=== PATIENT | male | born 1960 | race Caucasian/White ===

== ENCOUNTER 2018-11-27 15:45 | Inpatient (IN) ==
[2018-11-27 16:07] LABS: BASO# 0.08 X1000 (0.0-0.2); BASO% 0.4 % (0.0-0.8); EOS% 2.8 % (0.0-10.0); HEMOGLOBIN 12.6 g/dL (14.0-18.0); IMM GRAN# 0.19 X1000 (0.0-0.04); IMM GRAN% 0.9 % (0.0-0.5); LYMPH# 3.53 X1000 (1.2-3.4); LYMPH% 16.4 % (20.5-51.1); MCHC 37.1 g/dL (33-37); MCV 94.4 FL (81-99); MONO# 3.67 X1000 (0.11-0.59); MPV 11.4 FL (7.4-10.4); NEUT# 13.51 X1000 (1.4-6.5); NEUT% 62.5 % (42.2-75.2); PLT 310 X1000 (130-400); RDW 19.4 % (11.5-14.5); WBC 21.58 X1000 (4.8-10.8)
[2018-11-27 16:38] LABS: AGAP 14; ALB/GLOB RATIO 0.7; ALBUMIN 3.3 g/dL (3.5-5.0); ALKALINE PHOSPHATASE 722 U/L (32-122); BUN 11 mg/dL (8-22); CALCIUM 9.6 mg/dL (8.8-10.2); CHLORIDE 94 mmol/L (98-107); COSMO 257; CREATININE 0.6 mg/dL (0.7-1.2); ESTIMATED GFR > 60; GLUCOSE 105 mg/dL (70-104); GOT 67 U/L (10-34); GPT 63 U/L (10-44); POTASSIUM 3.7 mmol/L (3.5-5.1); SODIUM 128 mmol/L (136-145); TCO2 20 mmol/L (25-35); TOTAL BILIRUBIN 7.14 mg/dL (0.20-1.00); TOTAL PROTEIN 8.3 g/dL (6.3-8.3)
[2018-11-27] MEDS ORDERED: MORPHINE IV ONE ×2 (16:55→19:50)
[2018-11-27] MEDS ORDERED: NS 1,000 ML IV ONE (16:55)
[2018-11-27] MEDS ORDERED: ZOFRAN IV ONE (16:55)
[2018-11-27] MEDS ORDERED: VANCOMYCIN 1 GM/NS 1 GM/250 ML IVPB IV ONE (16:57)
[2018-11-27] MEDS ORDERED: ZOSYN 3.375 GM in NS 50 ML IV ONE (16:57)
--- NOTE | 2018-11-27 17:10 | Diag Imaging Result Doc PS360 ---
EXAM: CHEST-2 VIEWS - 11/27/2018 HISTORY: cough TECHNIQUE: Chest two views COMPARISON: 08/31/2018 left RIBS with PA chest, 10/01/2016 chest two views FINDINGS: Heart size is normal. There are some tortuosity of the thoracic aorta similar to prior. There is a left lower lobe calcified granuloma from old granulomatous disease. There is possibly mild infiltrate at left lingula. The remainder of the lungs appear essentially clear. There is no pleural effusion or pneumothorax identified. IMPRESSION: Possible mild infiltrate at left lingula. Bronchopneumonia cannot be excluded. Electronically signed by Dinesh Bryan 11/27/2018 5:08 PM
--- NOTE | 2018-11-27 19:02 | Diag Imaging Result Doc PS360 ---
EXAM: CT ABD/PELVIS W/IV CONT ONLY - 11/27/2018 HISTORY: abdominal pain / N/V / Hx colon ca TECHNIQUE: CT abdomen/pelvis with intravenous contrast. No oral contrast administered per request of the referring provider. COMPARISON: 08/31/2018 FINDINGS: There is dependent atelectasis the visualized bilateral lung bases. There is a small pleural-based nodular opacity at anterior lateral left base which is stable. There has been development of multiple low-density lesions in the liver, some which are relatively well demarcated, and others of which are ill-defined. These are most conspicuous at the superior right lobe and medial segment left lobe of liver. There has been development of intrahepatic biliary ductal dilatation which is most prominent in the left lobe of liver. The possibility of tumor obstructing the central intrahepatic biliary ductal system cannot be excluded. There is no extrahepatic biliary ductal dilatation, calcified gallstone, or pancreatic mass identified. The spleen is surgically absent. There is no evidence of adrenal mass. The bilateral kidneys enhance homogeneously. There is no hydronephrosis. There are nonspecific small retroperitoneal lymph nodes. There are postsurgical changes of partial colectomy. There is some fluid in borderline distended small bowel at the left upper quadrant. There is no discrete small bowel obstruction identified. There is no free air, free fluid, or abscess identified. IMPRESSION: Multiple low-density liver lesions. Intrahepatic biliary ductal dilatation, which may relate to obstruction of central intrahepatic bile ducts by tumor. Metastatic disease is the primary consideration. Cholangiocarcinoma might also be a consideration. Nonspecific borderline distention of small bowel left upper quadrant. No discrete small bowel obstruction. No abscess. No free air. This exam was performed using automated exposure control, adjustment of mA or kV according to patient size, and/or use of iterative reconstruction technique. Electronically signed by Dinesh Bryan 11/27/2018 7:00 PM
--- NOTE | 2018-11-27 20:04 | PROVIDER DOCUMENTATION ---
This chart was entered by Sarai Arguello Scribe, acting as scribe for Eugene Cunningham MD. HPI-Abdominal Pain/GI Problem - General Chief Complaint: Abdominal Pain Stated Complaint: CANCER PT-SHOULDER STOMACH PAIN Time Seen by Provider: 11/27/18 16:40 Source: patient Allergies/Adverse Reactions: Patient Allergies Allergy/AdvReac Type Severity Reaction Status Date / Time No Known Allergies Allergy Verified 11/18/15 15:22 Home Medications: Home Medication List Medication Instructions Recorded Confirmed Last Taken Type Escitalopram Oxalate [Lexapro] 10 mg PO DAILY 02/10/15 11/27/18 11/27/18 History 10mg Sucralfate [Carafate] 1 gm PO 4XDAY #120 tablet 04/04/15 11/27/18 11/27/18 Rx 1g Albuterol Sulfate [Proair Hfa] 8.5 gm IH Q4-6H PRN PRN 10/19/15 11/27/18 11/27/18 History 8.5 gm Clonidine HCl [Clonidine HCl ER] 0.1 mg PO Q12H PRN PRN 11/18/15 11/27/18 11/27/18 History 0.1 mg Amlodipine [Norvasc] 5 mg PO DAILY #60 tablet 11/21/15 11/27/18 11/27/18 Rx 5mg Oxycodone E.r. [Oxycontin] 10 mg PO Q12HR #20 tablet 10/01/16 11/27/18 11/25/18 Rx 10mg Hydrocodone/APAP 5 mg/325 mg 1 tab PO Q6H PRN PRN #12 tab 08/31/18 11/27/18 11/25/18 Rx [[place]hay[place]-5] 1 tab - History of Present Illness-ABD Nature of Presenting Problems: Patient is a 58 year old male who presents with right mid abdominal pain, nausea and vomiting that started this afternoon. Denies radiation of pain. Reports he receives chemo treatments for colon cancer. States his IV chemo medication was changed last week. Abdominal Pain Onset Location: reports: other (right mid abdomen) Pain Radiation: reports: no radiation Quality of Pain: reports: aching Severity in ED: reports: mild Onset/Duration: reports: this afternoon Timing: reports: still present Associated Symptoms: reports: nausea, vomiting Bruising or Bleeding Gums?: No Similar Symptoms Previously?: No Recently seen or treated by another doctor?: Yes Review of Systems - Adult - REVIEW OF SYSTEMS - ADULT Constitutional: reports: no symptoms reported. denies: chills, fever, fatique Eyes: reports: no symptoms reported Ears, Nose, Mouth & Throat: reports: no symptoms reported Cardiovascular: reports: no symptoms reported Respiratory: reports: no symptoms reported Gastrointestinal: reports: see HPI, abdominal pain (right mid), nausea, vomiting . denies: diarrhea Genitourinary: reports: no symptoms reported Musculoskeletal: reports: no symptoms reported Integumentary: reports: no symptoms reported Neurological: reports: no symptoms reported Psychiatric: reports: no symptoms reported Endocrine: reports: no symptoms reported Hematologic/Lymphatic: reports: no symptoms reported Allergic/Immunologic: reports: no symptoms reported All Other Systems: Reviewed and Negative Past History - Adult - PAST MEDICAL HISTORY-ADULT Review of Records: reports: Old Records Reviewed, Nursing Assessment Review, Medications Reviewed, Social history reviewed & non-contributory. Major Childhood Illnesses: reports: denies history Cardiovascular: reports: HTN Respiratory: reports: COPD Gastrointestinal: reports: cancer (colon) Obstetrical/Gynecological: reports: denies history Genitourinary: reports: denies history Musculoskeletal: reports: denies history Neurological: reports: denies history Psychiatric: reports: bipolar, depression Endocrine/Immune: reports: denies history Other Conditions: reports: denies history - PRIOR SURGERIES/PROCEDURES Surgical/Procedure History: reports: reviewed, not pertinent, other (abdominal) - IMMUNIZATION STATUS Childhood Immunizations: See Nurse Assessment Flu Vaccine: See Nurse Assessment - FAMILY HISTORY Family History: reviewed, not pertinent - SOCIAL HISTORY Smoking: cigarettes, less than 1 pack/day Provider spent 3-5 mins advising pt. on dangers of tobacco.: Discussed manners to quit use, and f/u contacts for add'l counseling. Substance Use: denies Physical Exam-General - PHYSICAL EXAM-ADULT Initial Vital Signs Reviewed: Yes - CONSTITUTIONAL General Appearance: alert, no apparent distress. negative: lethargic, slow to respond - HEAD, EARS, NOSE, MOUTH & THROAT HENMT: normocephalic/atraumatic, moist mucous membranes. negative: angioedema, hearing deficit - RESPIRATORY Respiratory: chest non-tender, rales (diffuse). negative: crackles, rhonchi, wheezing - CARDIOVASCULAR Cardiovascular: normal peripheral pulses, regular rate, rhythm. negative: tachycardia, systolic murmur - GASTROINTESTINAL (ABDOMEN) Abdominal Exam: normal bowel sounds, soft, tenderness (right mid). negative: guarding, rebound - MUSCULOSKELETAL Extremity: non-tender, normal inspection. negative: deformity, erythema, swelling - SKIN Integumentary: normal color, normal turgor, warm/dry. negative: cyanosis, ecchy mosis, erythema, jaundice - NEUROLOGIC Neurologic: grossly normal. negative: aphasia, facial droop - PSYCHIATRIC Psych/Mental Status: normal mood/affect, oriented x 3. negative: anxious Progress - PLAN OF CARE/RESULTS Progress/Plan/Lab Results: Vital Signs - 8 hr 11/27/18 15:47 11/27/18 16:53 11/27/18 16:54 Temperature 98.0 F Pulse Rate 94 H 85 82 Respiratory Rate 20 17 Blood Pressure 139/93 141/88 O2 Sat by Pulse Oximetry 96 95 95 Laboratory Results - last 24 hr 11/27/18 11/27/18 11/27/18 15:55 15:55 15:55 WBC 21.58 H RBC 3.60 L Hgb 12.6 L Hct 34.0 L MCV 94.4 MCH 35.0 H MCHC 37.1 H RDW Std Deviation 19.4 H Plt Count 310 MPV 11.4 H Immature Gran % (Auto) 0.9 H Neut % (Auto) 62.5 Lymph % (Auto) 16.4 L Miner % (Auto) 17.0 H Eos % (Auto) 2.8 Baso % (Auto) 0.4 Immature Gran # (Auto) 0.19 H Neut # (Auto) 13.51 H Lymph # (Auto) 3.53 H Miner # (Auto) 3.67 H Eos # (Auto) 0.60 Baso # (Auto) 0.08 Sodium 128 L Potassium 3.7 Chloride 94 L Carbon Dioxide 20 L Anion Gap 14 BUN 11 Creatinine 0.6 L Estimated GFR/1.73 m2 > 60 BUN/Creatinine Ratio 18 Glucose 105 H Calculated Osmolality 257 Calcium 9.6 Total Bilirubin 7.14 H AST 67 H ALT 63 H Alkaline Phosphatase 722 H Total Protein 8.3 Albumin 3.3 L Globulin 5.0 Albumin/Globulin Ratio 0.7 Plasma Lactate 0.7 Orders Category Date Time Status CHEST-2 VIEWS [RAD] Stat Exams 11/27/18 15:[address] ABD/PELVIS W/IV CONT ONLY [CT] Stat Exams 11/27/18 16:56 Ordered CBC WITH DIFF [HEME] Stat Lab 11/27/18 15:55 Completed COMPREHENSIVE METABOLIC PANEL [CHEM] Stat Lab 11/27/18 15:55 Completed LACTATE, PLASMA [CHEM] Stat Lab 11/27/18 15:55 Completed 0.9% Sodium Chloride Inj [Ns] 1,000 ml Med 11/27/18 16:55 Active IV 999 mls/hr Morphine Med 11/27/18 16:55 Discontinued 4 mg IV NOW ONE Ondansetron [Zofran] Med 11/27/18 16:55 Discontinued 4 mg IV NOW ONE Piperacillin/Tazobactam [Zosyn] 3.375 gm Med 11/27/18 16:57 Active 0.9% Sodium Chloride Inj [Ns] 50 ml IV NOW Vancomycin 1 gm/Ns Med 11/27/18 16:57 Active 1 gm in 250 ml IV NOW Pulse Oximetry Stat Oth 11/27/18 15:54 Completed A/P: Abdominalpain with elevated WBC, hx colon cancer with mets to live , mass obstructing intraheptic ducts. elevated bilirubin. Result Diagrams: 11/27/18 15:55 11/27/18 15:55 - XRAY 1 XRAY Study: Chest Impression: See EMR Report ( EXAM: CHEST-2 VIEWS - 11/27/2018 HISTORY: cough TECHNIQUE: Chest two views COMPARISON: 08/31/2018 left RIBS with PA chest, 10/01/2016 chest two views FINDINGS: Heart size is normal. There are some tortuosity of the thoracic aorta similar to prior. There is a left lower lobe calcified granuloma from old granulomatous disease. There is possibly mild infiltrate at left lingula. The remainder of the lungs appear essentially clear. There is no pleural effusion or pneumothorax identified. IMPRESSION: Possible mild infiltrate at left lingula. Bronchopneumonia cannot be excluded. Electronically signed by Dinesh Bryan 11/27/2018 5:08 PM 11/27/18 [id number] Interpreting Physician: Dinesh Bryan MD Dictated Date/Time: 11/27/18 2061 cc: Patsy Pool MD; None,PCP) - CT/MRI 1 CT Study: Abdomen, Pelvis Impression: Abnormal ([facility] [address] [facility], [address], [place] [address] Department of Imaging Patient: MELISSA HOFF Date: 11/27/18#: [id number] : 1ADM Status: REG ERAcct#: [id number] Age/Sex: 58/MRoom/Bed: Loc: ED Ordering Physician: Eugene Cunningham MD Family Physician: Kita Sommers MD Reason for Procedure: abdominal pain / N/V / Hx colon ca Signed EXAM: CT ABD/PELVIS W/IV CONT ONLY - 11/27/2018 HISTORY: abdominal pain / N/V / Hx colon ca TECHNIQUE: CT abdomen/pelvis with intravenous contrast. No oral contrast administered per request of the referring provider. COMPARISON: 08/31/2018 FINDINGS: There is dependent atelectasis the visualized bilateral lung bases. There is a small pleural-based nodular opacity at anterior lateral left base which is stable. There has been development of multiple low-density lesions in the liver, some which are relatively well demarcated, and others of which are ill-defined. These are most conspicuous at the superior right lobe and medial segment left lobe of liver. There has been development of intrahepatic biliary ductal dilatation which is most prominent in the left lobe of liver. The possibility of tumor obstructing the central intrahepatic biliary ductal system cannot be excluded. There is no extrahepatic biliary ductal dilatation, calcified gallstone, or pancreatic mass identified. The spleen is surgically absent. There is no evidence of adrenal mass. The bilateral kidneys enhance homogeneously. There is no hydronephrosis. There are nonspecific small retroperitoneal lymph nodes. There are postsurgical changes of partial colectomy. There is some fluid in borderline distended small bowel at the left upper quadrant. There is no discrete small bowel obstruction identified. There is no free air, free fluid, or abscess identified. IMPRESSION: Multiple low-density liver lesions. Intrahepatic biliary ductal dilatation, which may relate to obstruction of central intrahepatic bile ducts by tumor. Metastatic disease is the primary consideration. Cholangiocarcinoma might also be a consideration. Nonspecific borderline distention of small bowel left upper quadrant. No discrete small bowel obstruction. No abscess. No free air. This exam was performed using automated exposure control, adjustment of mA or kV according to patient size, and/or use of iterative reconstruction technique. Electronically signed by Dinesh Bryan 11/27/2018 7:00 PM 11/27/18 1900 Interpreting Physician: Dinesh Bryan MD Dictated Date/Time: 11/27/18 1684 cc: Eugene Cunningham MD; Kita Sommers MD) - CONSULTS/PCP/HOSPITALIST Notification #1 *Consult/PCP/Hospitalist*: Dr Kapadia Time Discussed: 20:03 Consult Disposition: Admit Departure - Departure Date of Disposition Decision: 11/27/18 Time of Disposition Decision: 20:02 DIAGNOSIS: Abdominal pain, Nausea and vomiting, Colon cancer, Elevated bilirubin Disposition: ADMITTED INPATIENT 09 Certified Medical Emergency: Emergent Condition: Stable Additional Freetext Instructions: We have examined and treated you today on an emergency basis only. This was not a substitute for, or an effort to provide, complete medical care. In most cases, you must let your doctor check you again. Tell your doctor about any new or lasting problems. We cannot recognize and treat all injuries or illnesses in one Emergency Department visit. If you had special tests, such as X-rays or CT scans, will be reviewed by radiologist and will call you if there are any new suggestions Follow up with primary care provider in 1 to 2 days if no improvement. If you do not have a primary care provider, you need to choose one as soon as possible. Take medicines as prescribed. Monitor for any side effects or adverse events from medications. If any side effect, adverse event or rash develops, or if you suspect any other adverse reaction to the medication, then discontinue the medication immediately and contact clinic /PCP or go to the nearest ER. Narcotic meds / sedative meds instruction - patent advised not to drive, operate any machinery or go into water after taking meds as it may impair mental ability to react to the situation in an appropriate manner . Continue other current medicines. Follow up with PCP within 24-48 hours, or sooner if symptoms worsen or fail to improve. Patient / guardian verbalizes understanding of treatment plan, medication, and side effects and agrees with treatment plan. Patient leaves ER in stable condition and ambulatory state. Return to ER as needed. Discharge instructions reviewed verbally and given to patient in written form. Follow up with primary care provider. Referrals and Follow-Ups: None,PCP [NON-STAFF PROVIDER] - - Critical Care Note This patient required my direct & personal management of CC.: No Attestation - Physician/ JOSEPH Attestation Patient care was provided by Advanced Practice Provider:: No The physician spent face to face time with patient:: Yes Advanced Practice Provider documentation review:: Supervising physician onsite and consulted in the evaluation and care of this patient. The physician did have a face to face encounter with the patient. This chart was documented by the indicated scribe, (Sarai Arguello Scribe) and accurately reflects the services I performed and decisions made by me, Eugene Cunningham MD, as attested by the provider's signature.
[2018-11-27] MEDS ORDERED: DILAUDID IV ONE (20:15)
[2018-11-27] MEDS ORDERED: ATIVAN IV ONE (20:17)
[2018-11-27] MEDS ORDERED: OXYCONTIN PO SCH (21:00)
--- NOTE | 2018-11-27 21:41 | HISTORY AND PHYSICAL ---
REASON FOR ADMISSION: One-week history of worsening abdominal pain and one-day history of nausea, vomiting. HISTORY OF PRESENT ILLNESS: Mr. Ricci Del Cid is a 58-year-old, male, past medical history of alcohol abuse, metastatic colon cancer status post partial colectomy 3 to 4 years ago. He also has a history of COPD. States that for the last 1 week he has been having frequent right upper quadrant pain radiating to the tip of his right shoulder. He denies any fever or chills. He has noted that his urine has been getting more deep orange in color compared to before. He denies any change in his stool color. He denies any diarrhea or altered bowel movements. He denies any pruritus. He describes the aforementioned pain. It is sharp and worse with movement, coughing. He denies any relieving factors. He denies any genitourinary complaints. He denies any polyuria or polydipsia. He says the pain usually lasts about 5 to 10 minutes at the most. He said the pain is increasing in duration and intensity, but what brought him to the hospital in addition to that was because he started vomiting. His emesis was foamy with no coffee grounds or blood. He says his appetite is diminished because he has been having frequent nausea. REVIEW OF SYSTEMS: Twelve system review was done. Positive findings per HPI. ALLERGIES: No known allergies. HOME MEDICATION: The patient takes OxyContin 10 mg b.i.d., Carafate one 4 times daily, ProAir 1 q. 6 hours p.r.n., Lexapro 10 mg daily, clonidine 0.1 mg q. 12 hours p.r.n., [place] 5 mg q. 8 hours, Norvasc 10 mg daily. FAMILY HISTORY: Only notable for colon cancer in his dad. No heart disease or diabetes in first- degree relatives. SURGICAL HISTORY: Aforementioned colectomy x2 he says, and he has had lymph node dissection in the left side of his neck, which he says was benign. SOCIAL HISTORY: Smokes 1 pack a day. Drinks about a pint of liquor every day for his "nerves." No illicit drug use. Lives with his brothers. LABORATORY DATA: White count is 21,000. H and H 12 and 40, platelets 310 with a normal differential pattern. Sodium is 128. BUN is 11, creatinine 0.6, glucose 105. Total bilirubin is 7.14, AST 67, ALT 63, alkaline phosphatase 722. Lactate is normal. IMAGING: CT abdomen and pelvis showed multiple low-density liver lesions intrahepatic biliary ductal dilatation, which may be related to central intrahepatic bile ducts by tumor. Metastatic disease primary consideration, although cholangiocarcinoma cannot be ruled out. Has some questionable lingular infiltrates which I cannot really appreciate. PHYSICAL EXAMINATION: VITAL SIGNS: Blood pressure 141/88, respirations 22, temperature is 98. He has O2 saturation of 94% on room air. GENERAL: He is a middle-aged man, not in acute distress. AAO x3. Normal mood and affect. HEENT: Head is normocephalic, atraumatic. Eyes are profoundly icteric, but not pale. NILE. EOMI. He is anicteric. ENT and oral exam is grossly normal. No oropharyngeal exudates or erythema noted. No central cyanosis noted. NECK: Supple. No JVD or carotid bruit. No thyromegaly. CHEST: Clear when auscultated with decreased entry in the bases. CARDIOVASCULAR: First and second heart sounds heard. No gallops, murmurs, rubs. Rhythm is regular. ABDOMEN: Full, soft with tenderness confined to the right upper quadrant area. No peritoneal signs noted. No mass or megaly. Bowel sounds are hypoactive. The patient has old surgical scars in [place] of his anterior abdominal wall. EXTREMITIES: No edema, clubbing or cyanosis. Distal pulse volume is full in all extremities distally. Symmetrical, regular. NEUROLOGICAL EXAM: No gross focal neuro deficits. No tremors. SKIN: Intact. No breakdown, lesions or erythema. He is mildly icteric. MUSCULOSKELETAL EXAM: Grossly normal. ASSESSMENT: 1. Obstructive jaundice probably from intrahepatic duct obstruction from metastatic disease. Cannot rule out simultaneous alcoholic liver disease. 2. Questionable left bronchopneumonia. 3. Alcohol abuse with mild withdrawal symptoms. 4. Hypertension. 5. Metastatic colon cancer. PLAN: 1. Aggressive hydration to make up for fluid losses from poor oral intake. Start patient empirically on Zosyn to cover for gram negatives and anaerobes in the biliary duct system. 2. Will also monitor patient for possible alcohol withdrawal. This patient will be started on thiamine and electrolytes to be monitored closely. Blood pressure will be managed with either clonidine or preferably beta blockers in view of his alcohol withdrawal symptoms. Consult GI to see patient for possible biliary/pancreatic stents to relieve obstruction. Consult oncologist to see patient. cc: Milo Kapadia MD
[2018-11-27] MEDS ORDERED: COMPAZINE IV PRN (21:50)
[2018-11-27] MEDS ORDERED: TYLENOL PO PRN (21:50)
[2018-11-27] MEDS ORDERED: SODIUM CHLORIDE 0.9% INJ ONE (21:50)
[2018-11-27] MEDS ORDERED: DILAUDID IV PRN (21:50)
[2018-11-27] MEDS ORDERED: KAPVAY PO SCH (21:50)
[2018-11-27] MEDS ORDERED: ZOFRAN IV PRN (21:50)
[2018-11-27] MEDS ORDERED: ATIVAN IV PRN (21:50)
[2018-11-28] MEDS: NS 1,000 ML IV SCH ×3 (00:49→16:28)
[2018-11-28] MEDS: PEPCID IV SCH ×3 (00:49→11:50)
[2018-11-28] MEDS: ZOSYN 3.375 GM in NS 50 ML IV SCH ×4 (00:49→17:26)
[2018-11-28] MEDS: LOVENOX SUBQ SCH ×2 (00:50→21:22)
[2018-11-28] MEDS: THIAMINE IM SCH ×2 (00:59→17:20)
[2018-11-28 07:19] LABS: BASO# 0.11 X1000 (0.0-0.2); BASO% 0.5 % (0.0-0.8); EOS% 5.1 % (0.0-10.0); HEMOGLOBIN 11.1 g/dL (14.0-18.0); IMM GRAN# 0.17 X1000 (0.0-0.04); IMM GRAN% 0.8 % (0.0-0.5); LYMPH# 3.27 X1000 (1.2-3.4); LYMPH% 15.1 % (20.5-51.1); MCH 34.5 PG (27-31); MCHC 35.8 g/dL (33-37); MCV 96.3 FL (81-99); MONO# 4.28 X1000 (0.11-0.59); MONO% 19.8 % (1.7-9.3); MPV 12.1 FL (7.4-10.4); NEUT# 12.66 X1000 (1.4-6.5); NEUT% 58.7 % (42.2-75.2); PLT 300 X1000 (130-400); RBC 3.22 XMIL (4.7-6.1); RDW 19.4 % (11.5-14.5); WBC 21.59 X1000 (4.8-10.8)
[2018-11-28 07:48] LABS: AGAP 10; ALB/GLOB RATIO 0.7; ALBUMIN 2.8 g/dL (3.5-5.0); ALKALINE PHOSPHATASE 586 U/L (32-122); BUN 8 mg/dL (8-22); CALCIUM 8.9 mg/dL (8.8-10.2); CHLORIDE 98 mmol/L (98-107); COSMO 262; CREATININE 0.6 mg/dL (0.7-1.2); ESTIMATED GFR > 60; GLUCOSE 83 mg/dL (70-104); GOT 51 U/L (10-34); GPT 45 U/L (10-44); MAGNESIUM 1.8 mg/dL (1.5-2.7); POTASSIUM 3.4 mmol/L (3.5-5.1); SODIUM 132 mmol/L (136-145); TCO2 24 mmol/L (25-35); TOTAL BILIRUBIN 7.35 mg/dL (0.20-1.00); TOTAL PROTEIN 6.8 g/dL (6.3-8.3)
[2018-11-28 07:55] LABS: BANDS 4 % (0-1); EOS 4 % (1-10); LYMPHS 19 % (21-51); MONO 10 % (1-9); SEGS 63 % (42-75)
[2018-11-28] MEDS ORDERED: ATIVAN IV PRN (10:19)
[2018-11-28] MEDS: LEXAPRO PO SCH (11:44)
[2018-11-28] MEDS: NORVASC PO SCH (11:45)
[2018-11-28] MEDS: DILAUDID IV PRN ×3 (11:51→21:22)
[2018-11-28] MEDS ORDERED: XYLOCAINE-MPF 1% ONE (14:31)
[2018-11-28] MEDS ORDERED: DIPRIVAN 1% ONE ×6 (14:31→16:12)
[2018-11-28] MEDS ORDERED: INDOCIN ONE (14:47)
[2018-11-28] MEDS ORDERED: GLUCAGON ONE (15:03)
--- NOTE | 2018-11-28 16:34 | PROGRESS NOTE ---
DATE: 11/28/2018 SUBJECTIVE: Patient reports still having abdominal pain and feeling nauseated. OBJECTIVE: Vital Signs: Temperature 97.5 degrees, heart rate 60, respiratory 15, blood pressure 118/69, O2 saturation 97% on room air. General Examination: This is a 58-year-old male, chronically ill-looking, lying in bed in no acute distress. Cardiovascular: S1, S2 heard. No murmurs, gallops, or rubs. Regular rate and rhythm. Respiratory: Decreased air entry globally. No wheezing noted. The patient not using any accessory muscles or having work of breathing. Abdomen: Soft, nontender to palpation. Bowel sounds present. No organomegaly. Extremities: No clubbing, cyanosis, or edema. Peripheral pulses present in both legs. Neurological: Patient is alert and oriented x3. Moves 4 extremities. LABORATORY DATA: White cell count 21.59, hemoglobin 11.1, hematocrit 31.0, platelets 300,000. BMP reveals sodium 132, potassium 3.4, creatinine 0.6, total bilirubin 7.35, AST 51, ALT 45, alkaline phosphatase 586. ASSESSMENT/PLAN: 1. Obstructive jaundice probably from intrahepatic duct obstruction for metastatic colon disease. At this point, GI has been consulted and apparently they are planning to do ERCP this afternoon. We will follow recommendations. Liver function test shows obstruction. Will monitor CMP daily. 2. Left bronchopneumonia. The patient is on Zosyn. White cell count is very elevated. We will continue to monitor CBC. 3. Alcohol abuse with withdrawal symptoms. At this point, the patient is going to be provided on Ativan p.r.n. We will continue to monitor this patient closely. 4. Hypertension. Blood pressure is under control. We will continue with same management. 5. Metastatic colon cancer. Aware. Hematology oncology has been consulted. 6. Disposition: I think at this point, patient is stable. We will see what the ERCP shows. We appreciate GI input. cc: Manjit Mendez MD
--- NOTE | 2018-11-28 16:54 | ENDOSCOPY OPERATIVE NOTE ---
[facility] ENDOSCOPY OPERATIVE NOTE , ERCP PROCEDURE REPORT EXAM DATE: 11/28/2018 PATIENT NAME: Ricci Del Cid MR #: [id number] BIRTHDATE: 1960 ATTENDING: Renny Honeycutt MD STATUS: inpatient [employer] SUPERVISOR: Jil Kelsey INDICATIONS: The patient is a 58 yr old male here for an ERCP due to jaundice, common bile duct stri cture, elevated aspartate transaminase (AST), elevated alanine transaminase (ALT), elevated alkaline phosphatase, loreto vated bilirubin, and History of metastatic colon Ca. PROCEDURE PERFORMED: ERCP with sphincterotomy/papillotomy ERCP with stent placement MEDICATIONS: Per Anesthesia CONSENT: The patient understands the risks and benefits of the procedure and understands that these r isks include, but are not limited to: sedation, allergic reaction, infection, perforation and/or bleeding. Alternative means of evaluation and treatment include, among others: physical exam, x-rays, and/or surgical intervention. The patient elects to proceed with this endoscopic procedure. HISTORY AND PHYSICAL: 11/28/2018 function. Hand hygiene and appropriate measures for infection prevention was taken. After the risks, benefits and alternatives of the procedure were thoroughly explained, Informed was verified, confirmed and timeout was successfully executed by the treatment team. With the patient in left semi-prone position, medications were admini stered intravenously.The [id number] ([id number]) was passed from the mouth into the esophagus and further advanc ed from the esophagus into the stomach. From stomach scope was directed to the second portion of the duodenum. M ajor papilla was aligned with the duodenoscope. The scope position was confirmed fluoroscopically. Rest of the finding s/therapeutics are given below. The scope was then completely withdrawn from the patient and the procedure completed. Th e pulse, BP, and O2 saturation were monitored and documented by the physician and the nursing staff throughout the ent joaquin procedure. The patient was cared for as planned according to standard protocol. The patient was then discharged to [facility] in stable condition and with appropriate post procedure care. ERCP: A pancreatogram was performed. The pancreatic duct system appeared normal with no evidence of stricture, dilation, stones or filling defects. A cholangiogram revealed multiple short tight stricture was se en in the right intrahepatic branches and left intrahepatic branches. With guidewire within the bile duct, a biliar y sphincterotomy was performed. Under endoscopic and fluoroscopic guidance, a 8.5Fr X plastic stent was placed in th e bile duct. ADVERSE EVENT: There were no complications. IMPRESSIONS: 1. Hilar obstruction 2. Right hepatic duct could not be opacified. Left heptic duct canulated and stent placed RECOMMENDATIONS: 1. Disposition 2. Return to floor when standard parameters are met 3. Repeat liver function test in 2 day(s) 4. Start Ciprofloxacin 500mg Twice Daily x 5 days 5. Continue current medication 6. Start Clear liquid diet for 1 Day(s) 7. Advance diet as tolerated REPEAT EXAM: for ERCP. Renny Honeycutt MD eSigned: Renny Honeycutt MD 11/28/2018 4:54 PM cc: Kita Sommers MD PATIENT NAME: Ricci Del Cid MR#: [id number]
--- NOTE | 2018-11-28 17:15 | Diag Imaging Result Doc PS360 ---
EXAM: ERCP-BILIARY AND PANCREATIC INDICATION: obstructive jaundice TECHNIQUE: COMPARISON: None. FINDINGS: Three spot fluoroscopic images were provided, which were performed during ERCP. There is irregular narrowing involving the proximal and distal common bile duct on the initial image. On the final image, there is a biliary stent in place. IMPRESSION: As above. Please correlate with live fluoroscopic imaging. Electronically signed by Anders Sterling 11/28/2018 5:13 PM
[2018-11-28] MEDS: NICODERM PATCH TD SCH (17:20)
--- NOTE | 2018-11-28 18:55 | GASTROENTEROLOGY CONSULTATION ---
DATE: 11/28/2018 REASON FOR CONSULTATION: Obstructive jaundice. HISTORY OF PRESENT ILLNESS: This is a 58-year-old male who reports 1-week history of right upper quadrant pain and shoulder pain. He has a history of metastatic colon cancer. Patient had partial colectomy he reports approximately 7 years ago. Diagnosis was done by a GI doctor in [place] per patient's report. He has been following with Dr. Kita Sommers for chemotherapy. Patient reports episodes of nausea, vomiting, abdominal pain from the right side up to the shoulder. He has also noticed a dark color to his urine. He denies any change to the color of his stools. He denies constipation or diarrhea. He denies fever or chills. He came into the hospital for further evaluation. An abdominal pelvis CT scan showed multiple low-density liver lesions, intrahepatic biliary ductal dilation, possibly obstruction of central intrahepatic bile ducts, mentioned that metastatic disease as the primary cause, but cholangiocarcinoma was also a consideration. He also had nonspecific borderline distention of small bowel in left upper quadrant with no definite obstruction, no abscess or free air noted. PAST MEDICAL HISTORY: Patient reports COPD. PAST SURGICAL HISTORY: Colectomy for colon cancer. He also reports left neck lymph node dissection. ALLERGIES: No known drug allergies. HOME MEDICATIONS: 1. Albuterol every 4 to 6 hours as needed. 2. Norvasc 5 mg daily. 3. Clonidine 0.1 mg every 12 hours as needed. 4. Lexapro 10 mg daily. 5. [place] 5 every 6 hours as needed. 6. OxyContin 10 mg every 12 hours. 7. Carafate 1 gram 4 times a day. SOCIAL HISTORY: Positive for tobacco use. He smokes 1 pack of cigarettes daily. He reports alcohol use daily, usually a pint of liquor daily. He is not . He does not have children. He lives with his brothers. REVIEW OF SYSTEMS: Per history of present illness. PHYSICAL EXAMINATION: Vital Signs: Temperature 97.5 degrees, pulse 60, respirations 20, blood pressure 118/69. General: The patient is awake and alert, no acute distress. HEENT: Normocephalic, atraumatic. Pupils equal, round, reactive to light. Sclerae are icteric. Skin: Icteric. Respiratory: Lung sounds essentially clear. Cardiovascular: Regular rate and rhythm. Abdomen: Full, soft. At that time of my evaluation, he did not report tenderness on palpation. He states that has improved some. Abdomen is soft, positive bowel sounds. Extremities: No lower extremity edema noted. Neurological: Cranial nerves 2 through 12 grossly intact. Patient is awake, alert, oriented to person, place, and time. LABORATORY DATA: Hematology: WBC 21.59, hemoglobin 11.1, hematocrit 31.0, MCV 96.3, platelet 300,000. Chemistry: Sodium 132, potassium 3.4, chloride 98, CO2 24, BUN 8, creatinine 0.6, glucose 83, calcium 8.9, magnesium 1.8. Total bilirubin 7.35, AST 51, ALT 45, alkaline phosphatase 586. IMAGING: CT scan results as mentioned above. ASSESSMENT AND PLAN: 1. Obstructive jaundice. 2. History of metastatic colon cancer following with Dr. Kita Sommers. 3. Alcohol abuse. 4. Tobacco abuse. 5. Chronic obstructive pulmonary disease. PLAN: Continue symptomatic treatment and supportive care. We will proceed with ERCP. I have gone over the procedure along with benefits and risks with the patient, and he wishes to proceed. Patient will most likely have a stent placed, plastic versus permanent metal stent depending on findings. I have discussed this case with Dr. Honeycutt. Thank you for this consultation. Dictated by MALCOLM Serrano for Renny Honeycutt MD cc: MALCOLM Otoole MD
--- NOTE | 2018-11-28 19:42 | HEMO/ONC CONSULTATION ---
DATE: 11/28/2018 CONSULTATION REQUESTED BY: Hospitalist Service. REASON FOR CONSULTATION: Metastatic colorectal cancer; Patient known. HISTORY OF PRESENT ILLNESS: Mr. Del Cid is a 58-year-old male who is known to us as we have been treating him for metastatic colorectal cancer. He has recently had progression of disease on scans and is actually now receiving Vectibix in our office. He has only received a couple of cycles at this point. The patient's most recent disease progression was in his liver. He presented to [facility] yesterday on 11/27/2018 complaining of frequent right upper quadrant pain radiating to the tip of his right shoulder as well as jaundice. He has now been admitted for further evaluation and treatment. CT scan during his workup shows intrahepatic duct obstruction secondary to metastatic disease. The patient reports that he is feeling better than he has been lately. PAST MEDICAL HISTORY: 1. Metastatic colorectal cancer, currently receiving Vectibix. Heavily pretreated. Recent progression on scans specifically in regards to his liver disease. 2. Anxiety, depression. 3. Chronic pain. 4. Hypertension. PAST SURGICAL HISTORY: Colectomy x 2. SOCIAL HISTORY: Patient smokes a pack of cigarettes per day. He also drinks a pint of liquor daily for his nerves. He denies any illicit drug use. He lives with his family. FAMILY HISTORY: Colon cancer in his father, but no other significant family history noted. REVIEW OF SYSTEMS: A twelve point review of systems has been completed and is negative except for expressed in HPI. PHYSICAL EXAMINATION: Vital Signs: Temperature 97.5, heart rate 60, blood pressure 118/69. O2 saturation 97% on room air. General: This is a male lying in the hospital bed. He is in no acute distress. There is no one at bedside. HEENT: Head normocephalic, atraumatic. Eyes: Sclerae are yellowed. Pupils equal, round, reactive. Ears, nose, throat, neck, and mouth: Mucosa appears to be normal. Gross auditory acuity is intact. Cardiovascular: S1, S2 heard. No murmurs, gallops, rubs appreciated. Respiratory: Chest is clear. He does have coarse breath sounds. Abdomen: Soft, with mild diffuse tenderness, but mainly tenderness in the right upper quadrant. Musculoskeletal: No bony abnormalities. Extremities: No bilateral lower extremity edema noted. Neurologic: Patient is alert and oriented. No focal motor deficits. LABS AND STUDIES: White blood cells today are 21.59, hemoglobin 11.1, platelets 300,000. Total bilirubin 7.35, AST and ALT are 51 and 45 respectively, alkaline phosphatase is 586. CT scan of the abdomen and pelvis as per above shows intrahepatic biliary ductal dilatation which may relate to obstruction of central intrahepatic bile ducts by tumor. Metastatic disease is a primary consideration. ASSESSMENT AND PLAN: 1. Metastatic colorectal cancer. The patient has only received a couple cycles of Vectibix. This has not really been enough time for the medication to be effective. He has recently had progression on scans which we are aware of. Dr. Honeycutt is currently consulted to evaluate the patient. We will follow up on his findings and recommendations. 2. Biliary obstruction due to metastatic disease. Dr. Honeycutt is going to attempt a stent placement. Again, we will follow up on those results. 3. Possible pneumonia. Patient is on medications to treat possible pneumonia. This is per the primary team. We will continue to follow along. 4. Pain. Seems to be well managed currently. Continue current management. 5. Hypertension. Management per the primary team. Blood pressure is well controlled currently. I would like to thank you for consulting us on Mr. Del Cid. We will continue to follow along and adjust our treatment plan per the patient's hospital course. Dictated by JENNY Wakefield for Kita Sommers MD cc: Kita Sommers MD I have seen and examined the patient and agree with the above note which reflects my history, physical examination, assessment and plan. Kita CORLEY
[2018-11-28] MEDS: KAPVAY PO SCH (21:22)
[2018-11-29] MEDS: DILAUDID IV PRN ×6 (02:02→23:17)
[2018-11-29] MEDS: PEPCID IV SCH ×2 (02:06→15:15)
[2018-11-29] MEDS: ZOSYN 3.375 GM in NS 50 ML IV SCH ×4 (02:06→22:20)
[2018-11-29 07:08] LABS: BASO# 0.13 X1000 (0.0-0.2); BASO% 0.6 % (0.0-0.8); EOS# 1.51 X1000 (0.0-0.7); EOS% 7.1 % (0.0-10.0); HEMATOCRIT 29.7 % (42.0-52.0); HEMOGLOBIN 10.5 g/dL (14.0-18.0); IMM GRAN# 0.12 X1000 (0.0-0.04); IMM GRAN% 0.6 % (0.0-0.5); LYMPH# 3.49 X1000 (1.2-3.4); LYMPH% 16.4 % (20.5-51.1); MCH 34.3 PG (27-31); MCHC 35.4 g/dL (33-37); MCV 97.1 FL (81-99); MONO# 2.99 X1000 (0.11-0.59); NEUT# 13.08 X1000 (1.4-6.5); NEUT% 61.3 % (42.2-75.2); PLT 305 X1000 (130-400); RBC 3.06 XMIL (4.7-6.1); WBC 21.32 X1000 (4.8-10.8)
[2018-11-29 07:39] LABS: EOS 6 % (1-10); LYMPHS 12 % (21-51); MONO 4 % (1-9); SEGS 78 % (42-75)
[2018-11-29 07:48] LABS: AGAP 10; ALB/GLOB RATIO 0.6; ALBUMIN 2.6 g/dL (3.5-5.0); ALKALINE PHOSPHATASE 469 U/L (32-122); BUN 7 mg/dL (8-22); CALCIUM 9.1 mg/dL (8.8-10.2); CHLORIDE 99 mmol/L (98-107); COSMO 265; CREATININE 0.5 mg/dL (0.7-1.2); ESTIMATED GFR > 60; GLUCOSE 102 mg/dL (70-104); GOT 45 U/L (10-34); GPT 41 U/L (10-44); POTASSIUM 3.6 mmol/L (3.5-5.1); SODIUM 133 mmol/L (136-145); TCO2 24 mmol/L (25-35); TOTAL BILIRUBIN 6.77 mg/dL (0.20-1.00); TOTAL PROTEIN 6.6 g/dL (6.3-8.3)
[2018-11-29] MEDS: LEXAPRO PO SCH (10:08)
[2018-11-29] MEDS: THIAMINE IM SCH (10:08)
[2018-11-29] MEDS: NICODERM PATCH TD SCH (10:08)
[2018-11-29] MEDS: NORVASC PO SCH (10:08)
[2018-11-29] MEDS: KAPVAY PO SCH ×2 (10:09→22:20)
--- NOTE | 2018-11-29 14:31 | PROGRESS NOTE ---
DATE: 11/29/2018 SUBJECTIVE: The patient reports pain is under control, feeling a little bit nauseated. OBJECTIVE: Vital Signs: Temperature 98.0 degrees, heart rate 62, respiratory rate 16, blood pressure 101/61, O2 saturation 94% on room air. General examination: This is a chronically ill- appearing, 58-year-old male, lying in bed in no acute distress. Cardiovascular exam: S1, S2 heard. No murmurs, gallops, or rubs. Regular rate and rhythm. Respiratory exam: Decreased air entry globally. No wheezing noted. Patient not using any accessory muscles or having work of breathing. Abdomen: Soft. Nontender to palpation. Bowel sounds present. No organomegaly. Mild right upper quadrant pain. Extremities: No clubbing, cyanosis, or edema. Peripheral pulses present in both legs. Neurological exam: Patient alert and oriented x3. Moves 4 extremities. LABORATORY DATA: White cell count 21.32, hemoglobin 10.5, hematocrit 39.7, platelets 305. BMP remarkable for sodium 133, creatinine 0.5, with total bilirubin 6.77, AST 45, ALT 41, alkaline phosphatase 469. ASSESSMENT AND PLAN: 1. Obstructive jaundice probably from intrahepatic duct obstruction secondary to metastatic colon cancer. Dr. Honeycutt has performed endoscopic retrograde cholangiopancreatography which basically showed a right hepatic duct that could not be opacified and left hepatic duct cannulated and stent placed. He recommended to start this patient on ciprofloxacin 500 mg oral twice daily, and we will continue with clear liquid diet today. Then we can advance his diet as tolerated. At this point, we will continue to monitor this patient closely. Monitor liver function tests as well. We will follow recommendations from Dr. Honeycutt. From Oncology standpoint, they are not planning to do anything. At this point, they are following this patient as well. 2. Left bronchopneumonia. We will continue with Zosyn. Unfortunately white cell count is still very elevated; I do not know if this is related to this infection or secondary to this obstruction. In any case, we will continue to monitor the complete blood count daily. 3. Alcohol abuse. For possible withdrawal symptoms, we will provide Ativan as needed. Today upon my examination, he does not look to be in any withdrawal. 4. Hypertension. Blood pressure is under control. We will continue with the same management. 5. Metastatic colon cancer. Oncology following this patient. 6. Disposition: Will following recommendations from both subspecialties, Gastroenterology and Oncology. cc: Manjit Mendez MD
[2018-11-29] MEDS: LOVENOX SUBQ SCH (22:20)
[2018-11-30] MEDS: PEPCID IV SCH ×2 (02:05→14:33)
[2018-11-30] MEDS: ZOSYN 3.375 GM in NS 50 ML IV SCH ×4 (02:06→20:01)
[2018-11-30] MEDS: DILAUDID IV PRN ×6 (04:18→23:03)
[2018-11-30 07:06] LABS: AGAP 9; ALB/GLOB RATIO 0.6; ALBUMIN 2.6 g/dL (3.5-5.0); ALKALINE PHOSPHATASE 456 U/L (32-122); BUN 6 mg/dL (8-22); CHLORIDE 98 mmol/L (98-107); COSMO 262; CREATININE 0.5 mg/dL (0.7-1.2); ESTIMATED GFR > 60; GLUCOSE 93 mg/dL (70-104); GOT 48 U/L (10-34); GPT 41 U/L (10-44); POTASSIUM 3.5 mmol/L (3.5-5.1); SODIUM 132 mmol/L (136-145); TCO2 25 mmol/L (25-35); TOTAL BILIRUBIN 7.14 mg/dL (0.20-1.00); TOTAL PROTEIN 6.7 g/dL (6.3-8.3)
[2018-11-30 07:16] LABS: BASO# 0.14 X1000 (0.0-0.2); BASO% 0.6 % (0.0-0.8); EOS# 1.76 X1000 (0.0-0.7); EOS% 7.9 % (0.0-10.0); HEMATOCRIT 29.4 % (42.0-52.0); HEMOGLOBIN 10.4 g/dL (14.0-18.0); IMM GRAN# 0.13 X1000 (0.0-0.04); IMM GRAN% 0.6 % (0.0-0.5); LYMPH# 4.23 X1000 (1.2-3.4); LYMPH% 18.9 % (20.5-51.1); MCH 34.6 PG (27-31); MCHC 35.4 g/dL (33-37); MCV 97.7 FL (81-99); MONO# 3.42 X1000 (0.11-0.59); MONO% 15.3 % (1.7-9.3); MPV 12.3 FL (7.4-10.4); NEUT# 12.69 X1000 (1.4-6.5); NEUT% 56.7 % (42.2-75.2); PLT 341 X1000 (130-400); RBC 3.01 XMIL (4.7-6.1); RDW 18.6 % (11.5-14.5); WBC 22.37 X1000 (4.8-10.8)
[2018-11-30 07:20] LABS: BANDS 2 % (0-1); EOS 6 % (1-10); LYMPHS 18 % (21-51); MONO 18 % (1-9); SEGS 52 % (42-75)
[2018-11-30 07:21] LABS: ANISOCYTOSIS 2+; HYPOCHROM 2+
[2018-11-30 07:22] LABS: HOWELL-JOLLY BODIES 1+; TARGET CELLS 2+
[2018-11-30] MEDS: THIAMINE IM SCH (08:21)
[2018-11-30] MEDS: NICODERM PATCH TD SCH (08:21)
[2018-11-30] MEDS: NORCO-5 PO PRN (08:22)
[2018-11-30] MEDS: KAPVAY PO SCH ×2 (08:22→20:01)
[2018-11-30] MEDS: NORVASC PO SCH (08:22)
[2018-11-30] MEDS: LEXAPRO PO SCH (08:22)
--- NOTE | 2018-11-30 11:30 | PROGRESS NOTE ---
DATE: 11/30/2018 SUBJECTIVE: The patient reports feeling much better. Less pressure in the right upper quadrant. Pain is under control. Will continue the same management. OBJECTIVE: Vital Signs: Temperature 97.9 degrees, heart rate 65, respiratory rate 18, blood pressure 103/79, O2 saturation 94% on room air. General: This is a chronically ill-appearing, 58- year-old, male, lying in bed in no acute distress. Cardiovascular: S1, S2 heard. No murmurs, gallops, or rubs. Regular rate and rhythm. Respiratory: Decreased air entry globally. No wheezing noted. The patient is not using any accessory muscles or having work of breathing. Abdomen: Soft. Nontender to palpation. Bowel sounds present. No organomegaly. Mild right upper quadrant pain. Extremities: No clubbing, cyanosis, or edema. Peripheral pulses present in both legs. Neurological exam: Patient alert and oriented x3. Moves 4 extremities. LABORATORY DATA: White cell count 21.32, hemoglobin 10.5, hematocrit 39.7, platelets 305. BMP remarkable for sodium 133, creatinine 0.5, with total bilirubin 6.77, AST 45, ALT 41, alkaline phosphatase 469. ASSESSMENT AND PLAN: 1. Obstructive jaundice probably from intrahepatic duct obstruction secondary to metastatic colon cancer. Dr. Honeycutt has performed endoscopic retrograde cholangiopancreatography which basically showed a right hepatic duct that could not be opacified and left hepatic duct cannulated and stent placed. He recommended to start this patient on ciprofloxacin 500 mg oral twice daily, and we will continue with clear liquid diet today. Since admission LFTs has not change significantly so will talk to them tomorrow to see what will be the next step in the management of this patient. Considering his obstruction that persists after ERCP his prognosis is very poor. He reports feeling better tough. 2. Left bronchopneumonia. We will continue with Zosyn. Unfortunately white cell count is still very elevated; I do not know if this is related to this infection or secondary to this obstruction. In any case, we will continue to monitor the complete blood count daily. 3. Alcohol abuse. I do not think he is having alcohol withdrawal symptoms, we will continue to provide Ativan as needed. 4. Hypertension. Blood pressure is under control. We will continue with the same medications. 5. Metastatic colon cancer. Oncology following this patient. 6. Disposition: Will see what GI and Oncology has to say tomorrow. cc: Manjit Mendez MD MTDD
[2018-11-30] MEDS: LOVENOX SUBQ SCH (20:01)
[2018-12-01] MEDS: ZOSYN 3.375 GM in NS 50 ML IV SCH ×2 (02:43→08:34)
[2018-12-01] MEDS: PEPCID IV SCH (02:43)
[2018-12-01] MEDS: NORCO-5 PO PRN ×2 (02:45→09:38)
[2018-12-01 06:59] LABS: BASO# 0.09 X1000 (0.0-0.2); BASO% 0.5 % (0.0-0.8); EOS# 1.74 X1000 (0.0-0.7); EOS% 8.8 % (0.0-10.0); HEMATOCRIT 30.4 % (42.0-52.0); HEMOGLOBIN 10.7 g/dL (14.0-18.0); IMM GRAN# 0.11 X1000 (0.0-0.04); IMM GRAN% 0.6 % (0.0-0.5); LYMPH# 3.69 X1000 (1.2-3.4); LYMPH% 18.6 % (20.5-51.1); MCH 34.5 PG (27-31); MCHC 35.2 g/dL (33-37); MCV 98.1 FL (81-99); MONO# 2.94 X1000 (0.11-0.59); MONO% 14.8 % (1.7-9.3); MPV 12.2 FL (7.4-10.4); NEUT# 11.27 X1000 (1.4-6.5); NEUT% 56.7 % (42.2-75.2); PLT 395 X1000 (130-400); RDW 18.4 % (11.5-14.5); WBC 19.84 X1000 (4.8-10.8)
[2018-12-01 07:47] LABS: AGAP 13; ALB/GLOB RATIO 0.5; ALBUMIN 2.4 g/dL (3.5-5.0); ALKALINE PHOSPHATASE 446 U/L (32-122); BUN 6 mg/dL (8-22); CALCIUM 9.3 mg/dL (8.8-10.2); CHLORIDE 100 mmol/L (98-107); COSMO 266; CREATININE 0.5 mg/dL (0.7-1.2); ESTIMATED GFR > 60; GLUCOSE 104 mg/dL (70-104); GOT 55 U/L (10-34); GPT 43 U/L (10-44); POTASSIUM 4.5 mmol/L (3.5-5.1); SODIUM 134 mmol/L (136-145); TCO2 21 mmol/L (25-35); TOTAL BILIRUBIN 6.89 mg/dL (0.20-1.00); TOTAL PROTEIN 7.4 g/dL (6.3-8.3)
[2018-12-01] MEDS: DILAUDID IV PRN ×2 (08:33→11:34)
[2018-12-01] MEDS: KAPVAY PO SCH (08:34)
[2018-12-01] MEDS: NICODERM PATCH TD SCH (08:34)
[2018-12-01] MEDS: NORVASC PO SCH (08:34)
[2018-12-01] MEDS: LEXAPRO PO SCH (08:34)
[2018-12-01] MEDS: THIAMINE IM SCH (08:34)
[2018-12-01 11:29] VITALS: BP 106/67
[2018-12-01] MEDS ORDERED: OXY IR PO PRN (11:43)
--- NOTE | 2018-12-01 13:39 | GASTROENTEROLOGY PROGRESS NOTE ---
DATE: 12/01/2018 SUBJECTIVE: Patient is awake, alert, no acute distress. He has a family member at the bedside. He states his abdominal pain has improved. Liver function tests remain elevated. Total bilirubin 6.89, AST 55, ALT 43, alkaline phosphatase 446. ERCP was done on 11/28/2018. Findings showed hilar obstruction. Pancreatic duct system appeared normal with no evidence of stricture, dilation, stones or filling defects. Cholangiogram revealed multiple short tight stricture in the right intrahepatic branches and left intrahepatic branches. Biliary sphincterotomy was performed and stent was placed in the bile duct. Right hepatic duct could not be opacified, left hepatic duct cannulated and stent was placed. He was started on Cipro antibiotic. OBJECTIVE: Vital Signs: Temperature 97.7, respirations 16, pulse 55, blood pressure 106/67. Patient is awake and alert in no acute distress. HEENT: Continued jaundice. Skin: Jaundiced. Abdomen: Soft, nontender. Positive bowel sounds. LABORATORY: Hematology. WBC 19.84, hemoglobin 10.7, hematocrit 30.4, MCV 98.1, platelet 395,000. Chemistry. Sodium 134, potassium 4.5, chloride 100, CO2 21, BUN 6, creatinine 0.5, glucose 104, calcium 9.3, total bilirubin 6.89, AST 55, ALT 43, alkaline phosphatase 446. ASSESSMENT AND PLAN: 1. Obstructive jaundice status post ERCP and stent placement. 2. Metastatic colon cancer. Following with Dr. Kita Sommers. 3. Left bronchial pneumonia on antibiotics. We will continue to follow. Bilirubin continues to be elevated although slight decrease. Follow with Dr. Sommers for further recommendations on his treatment regimen. As far as GI is concerned, he can be discharged when appropriate. Recommend he follow up with us in the office after discharge. Further plans to be made according to his progress. He will either have to have his stent exchanged or removed in approximately 6-8 weeks. Further plans to be made as needed. I have discussed this case with Dr. Honeycutt. Dictated by MALCOLM Serrano for Renny Honeycutt MD cc: MALCOLM Otoole MD [facility]
--- NOTE | 2018-12-01 19:12 | DISCHARGE SUMMARY ---
ADMISSION DATE: 11/27/2018 DISCHARGE DATE: 12/01/2018 DISCHARGE DIAGNOSIS: 1. Obstructive jaundice secondary to intrahepatic duct obstruction secondary to metastatic colon disease. 2. Advanced colon cancer. 3. Alcohol abuse. 4. Hypertension. 5. Metastatic colon disease. 6. Questionable left bronchopneumonia, under treatment. CONSULTATIONS: 1. Dr. Kita Sommers from Oncology. 2. Dr. Honeycutt from GI. PROCEDURES: 1. Abdomen and pelvis CT showed multiple low-density liver lesions intra-hepatic biliary ductal dilatation. Metastatic disease is a primary consideration and cholangiocarcinoma mild could be a consideration. 2. ERCP procedure showed hilar obstruction, right hepatic duct occlusion be opacify and left hepatic duct cannulated and stent placed. HOSPITAL COURSE: This is a 58-year-old male with past medical history of alcohol abuse, metastatic colon cancer status post partial colectomy 3 to 4 years ago who came to the emergency department complaining of right upper quadrant pain radiating to the right shoulder. The patient's CT of abdomen and pelvis showed findings as above. We decided to consult GI and then they performed an ERCP with results as above. Unfortunately, after stent placement liver function there were not correcting. The patient does not want to be in hospice yet. Dr. Kita Sommers from Hematology/Oncology has talked to him about his prognosis, but he insisted on receiving more chemotherapy so patient is going to be discharged in a stable condition. She is going to be seen by Dr. Sommers in the office for chemotherapy as per patient's desire. For the treatment of the left bronchopneumonia, we will continue with antibiotics for 14 days. His patient is being released in stable condition. DISCHARGE PHYSICAL EXAMINATION: Vital Signs: Temperature 97.6, heart rate 56, respiratory rate 18, blood pressure 124/72, O2 saturation 97% on room air. General examination: This is a 89- year-old, male, lying in bed, in no acute distress. Cardiovascular exam: S1, S2 heard. No murmurs, gallops, or rubs. Regular rate and rhythm. Respiratory exam: Clear bilaterally to auscultation. No work of breathing or using accessory muscles. Abdomen: Soft, nontender to palpation. Bowel sounds present. No organomegaly. Extremities: No clubbing, cyanosis, or edema. Peripheral pulses present in both legs. Neurologic: The patient is alert oriented x3. Moves 4 extremities. DISCHARGE DISPOSITION: Home to self-care. DISCHARGE MEDICATIONS: We are going to provide the following medications: Cefdinir 300 mg p.o. b.i.d. for 14 days. The rest of home medication has been has been checked out. cc: Manjit Mendez MD
--- NOTE | 2018-12-02 10:10 | HEMO/ONC PROGRESS NOTE ---
DATE: 12/01/2018 SUBJECTIVE: Mr. Del Cid is sitting in his hospital bed with a family member at his bedside. He is in no acute distress. He reports that he is feeling quite well and is ready to go home. OBJECTIVE: Vital Signs: Temperature 97.6 degrees, heart rate 55, respirations 16, blood pressure 106/67, O2 saturation 97% on room air. Laboratory Data: White blood cells 19.84, hemoglobin 10.7, hematocrit 30.4, platelet count 395,000. Sodium 134, potassium 4.5, chloride 100, CO2 21, BUN 6, creatinine 0.5, glucose 104. Total bilirubin 6.89, AST and ALT 55 and 43 respectively, alkaline phosphatase 446. Physical Examination: CV: S1, S2 heard. Bradycardia but regular rhythm. Respiratory: Chest is clear. Gastrointestinal: Abdomen is soft. Nondistended. There is some diffuse tenderness but mainly some mild tenderness in the right upper quadrant. Extremities: There is no edema. ASSESSMENT AND PLAN: 1. Metastatic colorectal cancer. The patient has only received 1 cycle of Vectibix as an outpatient. He is now status post stenting for some biliary obstruction. He may not improve much beyond the point he is at, at this time. We did discuss this today. We also discussed the option of hospice versus continuing Vectibix as an outpatient. The patient has opted to continue with Vectibix and we will get him treated as soon as possible as an outpatient. 2. Biliary obstruction. This is related to his metastatic liver disease. He was able to get a stent placed by gastroenterology. However, his liver enzymes have not dramatically improved. Again, we discussed that this may be the best that he will feel. The patient verbalized understanding. Overall, he has a poor prognosis. We will continue to monitor his liver function tests as an outpatient. 3. Nausea and vomiting. Resolved at this point. We can continue to manage with antiemetics as needed. 4. Disposition. From our standpoint, the patient can be discharged today. We will have him follow up later this week in order to receive his next dose of Vectibix. We will continue to monitor his labs closely as an outpatient. Dictated by JENNY Wakefield for Kita Sommers MD cc: Kita Sommers MD Pt seen and examined. Note above reflects my history, physical, assessment and plan. Kita Sommers MD MTDD
== END 2018-12-01 14:42 | disposition home or self-care (01) | DRG 444 ==
LOC: ED 15:45 → 3N 20:55 → SUATTDRO 20:55 → 3N 21:29
PROVIDERS: ATTEND Internal Medicine
PROC: EN.ERCP (2018-11-28 14:49)
CPT/HCPCS: 71020; 71046; 74177; 74330; 80053; 83605; 83735; 85025; 87040; A9270; C1769; J1170; J1610; J1650; J2060; J2270; J2405; J2543; J3370; J3411; J7030; Q9966; Q9967; S0028

== ENCOUNTER 2019-03-18 15:49 | Inpatient (IN) ==
[2019-03-18] MEDS ORDERED: NS 1,000 ML IV ONE (16:07)
--- NOTE | 2019-03-18 16:13 | PROVIDER DOCUMENTATION ---
HPI-General Adult - General Chief Complaint: Abdominal Pain Stated Complaint: NEAR SYNCOPE Time Seen by Provider: 03/18/19 15:56 Source: patient Allergies/Adverse Reactions: Patient Allergies Allergy/AdvReac Type Severity Reaction Status Date / Time No Known Allergies Allergy Verified 03/18/19 16:06 Home Medications: Home Medication List Medication Instructions Recorded Confirmed Last Taken Type Escitalopram Oxalate [Lexapro] 10 mg PO DAILY 02/10/15 03/18/19 03/18/19 History Albuterol Sulfate [Proair Hfa] 8.5 gm IH Q4-6H PRN PRN 10/19/15 03/18/1902/26 History Clonidine HCl [Clonidine HCl ER] 0.1 mg PO Q12H PRN PRN 11/18/15 03/18/19 03/18/19 History Amlodipine [Norvasc] 5 mg PO DAILY #60 tablet 11/21/15 03/18/19 03/18/19 Rx Oxycodone E.r. [Oxycontin] 10 mg PO Q12HR #20 tablet 10/01/16 03/18/19 03/18/19 Rx - History of Present Illness -Gen Adult Nature of Presenting Problems: 58yom present to ER with c/o R sided abd pain and generalized weakness. Pt has hx of metastatic color cancer, states last tx approx 3 weeks ago. Pt has severe liver disease. Pt states when he woke up this morning he felt much worse and weaker. Pt jaundice in color. Weakness in voice noted. Pt very poor historian. Location of Pain/Injury: reports: abdomen (R) Pain Radiation: reports: no radiation Quality of Pain: reports: aching Onset/Duration: reports: this morning Timing: reports: still present Associated Symptoms: reports: dizziness, malaise. denies: chest pain, diaphoresis, fever/chills, genitourinary problems, nausea, shortness of breath, vomiting Review of Systems - Adult - REVIEW OF SYSTEMS - ADULT Constitutional: reports: no symptoms reported. denies: chills, fever Eyes: reports: see HPI, other (yellowing to sclera) Ears, Nose, Mouth & Throat: reports: no symptoms reported Cardiovascular: reports: no symptoms reported. denies: chest pain Respiratory: reports: no symptoms reported. denies: cough, shortness of breath, wheezing Gastrointestinal: reports: see HPI, abdominal pain. denies: diarrhea, nausea, vomiting Genitourinary: reports: no symptoms reported. denies: dysuria, frequency Musculoskeletal: reports: no symptoms reported Integumentary: reports: no symptoms reported Neurological: reports: see HPI, dizziness/vertigo, other (generalized weakness). denies: numbness, paresthesia, slurred speech Psychiatric: reports: no symptoms reported Endocrine: reports: no symptoms reported Hematologic/Lymphatic: reports: no symptoms reported Allergic/Immunologic: reports: no symptoms reported All Other Systems: Reviewed and Negative Past History - Adult - PAST MEDICAL HISTORY-ADULT Review of Records: reports: Old Records Reviewed, Nursing Assessment Review, Medications Reviewed, Social history reviewed & non-contributory. Major Childhood Illnesses: reports: denies history Cardiovascular: reports: HTN Respiratory: reports: COPD Gastrointestinal: reports: cancer (colon), liver disease Obstetrical/Gynecological: reports: denies history Genitourinary: reports: denies history Musculoskeletal: reports: denies history Neurological: reports: denies history Psychiatric: reports: bipolar, depression Endocrine/Immune: reports: denies history Other Conditions: reports: denies history - PRIOR SURGERIES/PROCEDURES Surgical/Procedure History: reports: other (abdominal) - IMMUNIZATION STATUS Childhood Immunizations: See Nurse Assessment Flu Vaccine: See Nurse Assessment - FAMILY HISTORY Family History: reviewed, not pertinent - SOCIAL HISTORY Smoking: cigarettes Provider spent 3-5 mins advising pt. on dangers of tobacco.: Discussed manners to quit use, and f/u contacts for add'l counseling. Alcohol Use Frequency: sober (former use) (3 months) Physical Exam-General - PHYSICAL EXAM-ADULT Initial Vital Signs Reviewed: Yes - CONSTITUTIONAL General Appearance: alert, mild distress, anxious - EYES Eyes: PERRL/EOMI, scleral icterus - HEAD, EARS, NOSE, MOUTH & THROAT HENMT: normocephalic/atraumatic, other (dry mucous membranes). negative: angioedema - NECK Neck: full range of motion, supple, normal inspection - RESPIRATORY Respiratory: lungs clear, normal breath sounds, no respiratory distress, no accessory muscle use - CARDIOVASCULAR Cardiovascular: regular rate, rhythm - GASTROINTESTINAL (ABDOMEN) Abdominal Exam: normal bowel sounds, soft, tenderness (R). negative: distended, guarding, rigid, rebound - MUSCULOSKELETAL Back Exam: normal inspection, no CVA tenderness, no vertebral tenderness Extremity: normal range of motion, normal gait, normal inspection, no pedal edema, normal capillary refill - SKIN Integumentary: warm/dry, jaundice. negative: diaphoresis - NEUROLOGIC Neurologic: grossly normal - PSYCHIATRIC Psych/Mental Status: oriented x 3 Progress - PLAN OF CARE/RESULTS Progress/Plan/Lab Results: Vital Signs - 8 hr 03/18/19 15:53 Temperature 98.1 F Pulse Rate 76 Respiratory Rate 18 Blood Pressure 88/61 O2 Sat by Pulse Oximetry 99 Orders Category Date Time Status Nursing- Obtain EKG ONCE Care 03/18/19 16:07 Ordered AMMONIA [CHEM] Stat Lab 03/18/19 16:01 Uncollected BLOOD CULTURE [BLDCUL] Stat Lab 03/18/19 16:01 Uncollected CBC WITH DIFF [HEME] Stat Lab 03/18/19 16:01 Ordered COMPREHENSIVE METABOLIC PANEL [CHEM] Stat Lab 03/18/19 16:01 Uncollected LACTATE, PLASMA [CHEM] Stat Lab 03/18/19 16:01 Uncollected LIPASE [CHEM] Stat Lab 03/18/19 16:01 Uncollected URINALYSIS W/POSS RFLX CULT [URINALYSIS] Stat Lab 03/18/19 16:01 Uncollected Ns 1000 ml IV Bolus X1 Med 03/18/19 16:07 Ordered 0.9% Sodium Chloride Inj [Ns] 1,000 ml IV 999 mls/hr EKG [EKG] Stat Ther 03/18/19 16:07 Ordered Result Diagrams: 03/18/19 16:27 03/18/19 16:27 - EKG 1 Time of EKG reading by physician:: 17:35 EKG Read and Signed by:: Cleve Lawrence EKG Interpretation (*Must complete 3 of following elements*): Abnormal Rate: 67 Rhythm: NSR - XRAY 1 XRAY Study: Chest Impression: See EMR Report (FINDINGS: The lungs are well expanded. The heart is not enlarged. The vessels are not distended. There are no infiltrates. No pleural effusions. Right-sided portacatheter. No pneumothorax. Left granuloma. IMPRESSION: No acute abnormality. Electronically signed by Peter Rosario 03/18/2019 5:14 PM) - CT/MRI 1 CT Study: Abdomen, Pelvis Impression: See EMR Report (FINDINGS: The liver is enlarged. There has been significant worsening in the multiple hepatic metastases and extrahepatic biliary dilatation. There is a common bile duct stent. No calcified gallstones. The spleen has been removed. Normal pancreas and adrenal glands. Normal enhancement of the kidneys. No hydronephrosis. No aortic aneurysm. Moderate atherosclerosis. No bowel obstruction. Urinary bladder is distended and is normal. The prostate is normal. Small to moderate amount of free fluid in the pelvis. No abscess. IMPRESSION: Worsening hepatic metastases and intrahepatic biliary ductal dilatation. This exam was performed using automated exposure control, adjustment of mA or kV according to patient size, and/or use of iterative reconstruction technique. Electronically signed by Peter Rosario 03/18/2019 6:42 PM) - CONSULTS/PCP/HOSPITALIST Notification #1 *Consult/PCP/Hospitalist*: Dr Harrington, hospitalist Time Discussed: 18:54 Consult Disposition: Admit Departure - Departure Date of Disposition Decision: 03/18/19 Time of Disposition Decision: 18:55 DIAGNOSIS: Metastases to the liver, Hyponatremia Leukocytosis Qualifiers: Leukocytosis type: unspecified Qualified Code(s): D72.829 - Elevated white blood cell count, unspecified Disposition: ADMITTED INPATIENT 09 Certified Medical Emergency: Emergent Condition: Fair Referrals and Follow-Ups: None,PCP [Primary Care Provider] - - Critical Care Note This patient required my direct & personal management of CC.: Yes Total Time (mins): 36 Critical Care Statement: This patient required my direct personal management to treat or rule out processes, the absence of which, could potentiallly result in sudden, clinically significant life or limb threatening deterioration. Attestation - Physician/ JOSEPH Attestation Patient care was provided by Advanced Practice Provider:: Yes Advanced Practice Provider:: Jose Alfredo Herbert Advanced Practice Provider documentation review:: The Mid-level provider doc umentation, treatment plan and medical decision making was reviewed by the physician who agrees with all treatment and medical decision making by the MLP. The physician spent face to face time with patient:: No Advanced Practice Provider documentation review:: Supervising physician onsite and consulted in the evaluation and care of this patient. The physician did not have a face to face encounter with the patient.
[2019-03-18 17:03] LABS: AGAP 13; ALB/GLOB RATIO 0.3; ALBUMIN 1.9 g/dL (3.5-5.0); ALKALINE PHOSPHATASE 614 U/L (32-122); BUN 10 mg/dL (8-22); CALCIUM 8.9 mg/dL (8.8-10.2); CHLORIDE 93 mmol/L (98-107); COSMO 256; CREATININE 0.6 mg/dL (0.7-1.2); ESTIMATED GFR > 60; GLUCOSE 89 mg/dL (70-104); GOT 121 U/L (10-34); GPT 43 U/L (10-44); LIPASE 24 U/L (13-60); POTASSIUM 2.9 mmol/L (3.5-5.1); SODIUM 128 mmol/L (136-145); TCO2 22 mmol/L (25-35); TOTAL BILIRUBIN 11.09 mg/dL (0.20-1.00); TOTAL PROTEIN 7.8 g/dL (6.3-8.3)
[2019-03-18 17:04] LABS: BASO# 0.04 X1000 (0.0-0.2); BASO% 0.1 % (0.0-0.8); EOS# 0.29 X1000 (0.0-0.7); EOS% 1.1 % (0.0-10.0); HEMATOCRIT 26.4 % (42.0-52.0); IMM GRAN# 0.17 X1000 (0.0-0.04); IMM GRAN% 0.6 % (0.0-0.5); LYMPH# 3.13 X1000 (1.2-3.4); LYMPH% 11.6 % (20.5-51.1); MCH 30.4 PG (27-31); MCHC 34.1 g/dL (33-37); MCV 89.2 FL (81-99); MONO# 2.62 X1000 (0.11-0.59); MONO% 9.7 % (1.7-9.3); MPV 11.8 FL (7.4-10.4); NEUT# 20.78 X1000 (1.4-6.5); NEUT% 76.9 % (42.2-75.2); PLT 507 X1000 (130-400); RBC 2.96 XMIL (4.7-6.1); RDW 17.9 % (11.5-14.5); WBC 27.03 X1000 (4.8-10.8)
[2019-03-18] MEDS ORDERED: KLOR-CON PO ONE (17:16)
--- NOTE | 2019-03-18 17:16 | Diag Imaging Result Doc PS360 ---
EXAM: CHEST-2 VIEWS HISTORY: weakness TECHNIQUE: Chest two views COMPARISON: 01/02/2019 FINDINGS: The lungs are well expanded. The heart is not enlarged. The vessels are not distended. There are no infiltrates. No pleural effusions. Right-sided portacatheter. No pneumothorax. Left granuloma. IMPRESSION: No acute abnormality. Electronically signed by Peter Rosario 03/18/2019 5:14 PM
[2019-03-18 17:28] LABS: EOS 1 % (1-10); LARGE PLATELETS OCCASIONAL; LYMPHS 15 % (21-51); MONO 3 % (1-9); SEGS 79 % (42-75); TARGET CELLS 1+
--- NOTE | 2019-03-18 17:44 | EKG Report ---
Test Performed on : 03/18/2019 5:35:53 PM Test Reason : weakness Blood Pressure : / mmHG Vent. Rate : 067 BPM Atrial Rate : 067 BPM P-R Int : 140 ms QRS Dur : 102 ms QT Int : 454 ms P-R-T Axes : 052 045 -04 degrees QTc Int : 479 ms Normal sinus rhythm. Low voltage QRS Possible Inferior infarct , age undetermined Abnormal ECG When compared with ECG of 18-MAR-2017 08:56, T wave inversion now evident in Inferior leads Unconfirmed Result
--- NOTE | 2019-03-18 18:45 | Diag Imaging Result Doc PS360 ---
EXAM: CT ABD/PELVIS W/IV CONT ONLY HISTORY: abd pain TECHNIQUE: CT abdomen and pelvis with intravenous contrast COMPARISON: 11/27/2018 FINDINGS: The liver is enlarged. There has been significant worsening in the multiple hepatic metastases and extrahepatic biliary dilatation. There is a common bile duct stent. No calcified gallstones. The spleen has been removed. Normal pancreas and adrenal glands. Normal enhancement of the kidneys. No hydronephrosis. No aortic aneurysm. Moderate atherosclerosis. No bowel obstruction. Urinary bladder is distended and is normal. The prostate is normal. Small to moderate amount of free fluid in the pelvis. No abscess. IMPRESSION: Worsening hepatic metastases and intrahepatic biliary ductal dilatation. This exam was performed using automated exposure control, adjustment of mA or kV according to patient size, and/or use of iterative reconstruction technique. Electronically signed by Peter Rosario 03/18/2019 6:42 PM
[2019-03-18 20:40] LABS: URINE SOURCE CATH
[2019-03-18 20:41] LABS: BLOOD URINE NEGATIVE (NEGATIVE); COLOR YELLOW; GLUCOSE URINE NEGATIVE (NEGATIVE); KETONE URINE NEGATIVE (NEGATIVE); LEUKOCYTES URINE NEGATIVE (NEGATIVE); NITRITE URINE NEGATIVE (NEGATIVE); PH URINE 6.5; PROTEIN URINE 30 mg/dL (NEGATIVE); SP GRAVITY URINE 1.039; TURBIDITY URINE HAZY (CLEAR); UROBILINOGEN URINE 2 mg/dL (NORMAL)
[2019-03-18 20:45] LABS: UR EPITHELIAL CELLS <10 /HPF (<10); URINE BACTERIA NEGATIVE /HPF; URINE RBC <10 /HPF (<10); URINE WBC <10 /HPF (<10)
[2019-03-18 20:50] LABS: BILIRUBIN URINE LARGE (NEGATIVE)
[2019-03-18 20:56] LABS: URINE CASTS GRANULAR PRESENT; URINE CRYSTALS NONE SEEN; URINE YEAST NONE SEEN
[2019-03-18 22:08] LABS: INR 1.6; PROTIME 19.4 Seconds (11.0-16.0)
[2019-03-18 22:10] LABS: PTT 65.2 Seconds (22.3-41.8)
[2019-03-18 22:15] LABS: MAGNESIUM 1.5 mg/dL (1.5-2.7)
[2019-03-18] MEDS ORDERED: MORPHINE IV ONE (23:27)
[2019-03-18] MEDS ORDERED: NS 500 ML IV ONE (23:27)
[2019-03-18] MEDS ORDERED: ZOFRAN IV PRN (23:27)
[2019-03-19] MEDS: ZOSYN 3.375 GM in NS 50 ML IV SCH ×5 (00:05→23:26)
[2019-03-19] MEDS: MORPHINE IV PRN ×5 (02:42→22:02)
[2019-03-19] MEDS ORDERED: NS 500 ML IV ONE (04:14)
--- NOTE | 2019-03-19 04:52 | HISTORY AND PHYSICAL ---
PRIMARY CARE PHYSICIAN: None. STARCH AND PROSIZE MIXER/ONCOLOGIST: Dr. Sommers. DATE AND TIME: 03/18/2019 at 2245. CHIEF COMPLAINT: Abdominal pain. HISTORY OF PRESENT ILLNESS: Mr. Del Cid is a 58-year-old male who has a history of metastatic colon cancer with liver metastases. He is followed by Dr. Sommers. He was most recently admitted to the hospital in November 2018, and was noted to have obstructive jaundice secondary to intrahepatic duct obstruction secondary to metastatic colon disease. Dr. Honeycutt did perform an ERCP and did place a bile duct stent. The patient presents today with reports of worsening pain all over, though he does state that his pain is worse in his abdomen and his legs. He reports that the pain is in his right upper abdomen, though the type of pain and location have not changed, he states it has increased in intensity. He also does report worsening weakness and just generally not feeling well. The patient does have jaundice noted to his skin and mucous membranes. His urine at bedside in the urinal did look like dark [employer]. He states that his urine has been this dark color for approximately 5 or 6 weeks now. He also does appear to be slightly more anemic than previously. He is reporting some nausea. Denies any vomiting. He denies any diarrhea. He also denies any hematemesis, hematochezia or melena. The patient states that he is not drinking presently and has not drank recently. 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 His white blood cell count, looking back, does tend to trend anywhere from 15,000 to 21,000, though this is increased from his baseline. He does report subjective fever, body aches, and chills. Though, he denied any headache and chest pain, shortness of breath or cough. He also denies any urinary frequency, though states that he does have some slight dysuria at times, though this has been present for quite some time and is not of new onset. He does report chronic pain in his legs that is slightly worse, though he denies any other numbness, tingling, or swelling in extremities. The patient also reports that, at this time, he is only taking pain medication of oxycodone HCL 15 mg p.o. 3 times a day as needed for pain. He states that he has been taken off all of his previous antihypertensive medications of Norvasc and clonidine. Upon evaluation in the ER, as previously mentioned, he was noted to have leukocytosis with a white blood cell count of 27,030. Total bilirubin is elevated at 11.09, AST 121, ALT 43, alkaline phosphatase is 614. His sodium and potassium were slightly low, his potassium is 2.9, magnesium is 1.5, though ammonia level was 34. CK was 55 and troponin was less than 0.01. Plasma lactate was 1.6. Urinalysis did show large bilirubin, though no other signs of infection noted. Given the patient's abdominal pain and recent history of biliary stent placement, they did perform a CT of the abdomen and pelvis, which did show worsening hepatic metastases and intrahepatic biliary ductal dilation. Chest x-ray did not show any acute abnormalities. There were no infiltrates or pleural effusions noted. The patient has been borderline hypotensive in the ER, though he is maintaining MAPS that are in the mid 60s to low 70s. The patient has been given potassium 40 mEq p.o. He was given a 1 L normal saline bolus. We will given additional 500 mL normal saline bolus. We have placed him with antibiotic of Zosyn 3.375 g IV q.6 hours. Blood cultures have already been obtained. He will be placed in the ICU for close monitoring. REVIEW OF SYSTEMS: A 14-point review of systems was conducted with the patient and all were negative, except for pertinent positives mentioned above HPI. PAST MEDICAL HISTORY: 1. Colon cancer with liver metastases. 2. History of obstructive jaundice secondary to intrahepatic duct obstruction secondary to metastatic colon cancer with a recent biliary stent placement. 3. History of hypertension. The patient states at this time he is not taking any medications for this. 4. History of alcohol abuse. 5. Nicotine dependence. 6. COPD. 7. Anxiety. PAST SURGICAL HISTORY: 1. History of 2 colon surgeries secondary to colon cancer. 2. Right Port-A-Cath placement. 3. Recent ERCP with biliary stent placement in November 2018. SOCIAL HISTORY: The patient states that he does still smoke approximately 1 pack of cigarettes per day. Though he has a history of alcohol abuse, he denies any current or recent use. There is no known illicit drug use. FAMILY HISTORY: Notable for his Father having colon cancer. There is no history of heart disease or diabetes in first-degree relatives. ALLERGIES: Patient has no known allergies. HOME MEDICATIONS: Oxycodone HCL 15 mg p.o., half to 1 tablet by mouth 3 times a day as needed for pain. DIAGNOSTIC DATA/LABORATORY RESULTS: White blood cell count is 27,030, hemoglobin 9, hematocrit 26.4, platelet count is 507,000. PT 19.4, INR 1.6, PTT 65.2. Sodium 128, potassium 2.9, chloride 93, serum bicarb is 22, BUN 10, creatinine 0.6 with a GFR greater than 60. Glucose 89, calcium 8.9, magnesium 1.5, total bilirubin is 11.09, AST 121, ALT 43, alkaline phosphatase is 614, ammonia 34. CK 55, troponin less than 0.01. Lipase is 24. Plasma lactate is 1.6. Urinalysis was obtained via catheter, was positive for protein and large bilirubin, was negative for glucose, ketones, blood, nitrites, leukocytes, white blood cells, or bacteria. EKG shows sinus rhythm at a rate of 67 with a QTc of 479 msec. Chest x-ray showed no acute abnormalities. CT abdomen and pelvis showed worsening hepatic metastasis and intrahepatic biliary ductal dilation. Please see CT report for full detailed findings. PHYSICAL EXAMINATION: VITAL SIGNS: Temperature 98.1 degrees, heart rate 74, respirations 21, blood pressure is 92/64, with a MAP of 77, oxygen saturation is 96% on room air. GENERAL: Mr. Del Cid is a 58-year-old ill-appearing male, he was resting in the ER stretcher. He was in no acute distress. He was awake, alert, and able to answer questions appropriately. HEENT: Head is atraumatic, normocephalic. Pupils are equal, round, reactive to light, were 3 mm bilaterally and brisk. Sclerae did have jaundice noted. Oral mucosa was moist. Oropharynx was clear. The patient's mucous membranes did have jaundice noted as well. NECK: Supple. Trachea midline. CARDIOVASCULAR: Patient has S1, S2 present. No murmurs, gallops, rubs appreciated with a regular rate and rhythm. PULMONARY: Patient has symmetrical chest expansion bilaterally. Lung sounds are clear to auscultation in bilateral full flores. ABDOMEN: Soft, does not appear to be distended. The patient was tender in the right upper quadrant area upon palpation. Bowel sounds were present in all 4 quadrants, were slightly hypoactive. EXTREMITIES: No cyanosis or edema noted. Pulse, motor, and sensory were intact in all extremities. Radial and pedal pulses were 2+ bilaterally. INTEGUMENTARY: The patient's skin does have jaundice noted, though is dry and intact. NEUROLOGICAL: Patient is alert and oriented to person, place, time, and situation. He is able to move all extremities. There were no focal neurological deficits noted at this time. ASSESSMENT AND PLAN: 1. Colon cancer with liver metastasis. The patient's CT did show worsening hepatic metastases and hepatic biliary ductal dilation. He does have associated transaminitis as well. We have placed a consult with Dr. Sommers with Oncology. We will await their evaluation and further recommendations for management. 2. Intrahepatic biliary ductal dilation and transaminitis. The patient did have a recent ERCP with biliary stent placement. Given his current CT findings and recent history, we will place a consult with Dr. Honeycutt with Gastroenterology. We will await his evaluation and further recommendations for management. 3. Leukocytosis. The patient has had a history of splenectomy, though his white blood cell count is quite elevated from previous results. He did report subjective fever, body aches and chills. The patient is reporting a worsening abdominal pain and weakness. He does have worsening hepatic metastasis and intrahepatic biliary ductal dilation. We have gone ahead and placed the patient with antibiotic coverage of Zosyn 3.375 g IV q.6 hours. Blood cultures have been obtained. We will continue to monitor closely. 4. Chronic obstructive pulmonary disease. We have placed orders for p.r.n. DuoNeb treatments, if needed. 5. Anemia. The patient has had a decline in his hemoglobin and hematocrit when looking back since November. Though he denied any vomiting, hematemesis, hematochezia or melena. We will go ahead and perform an anemia profile. We will place an order for Hemoccult stool as well. We will await these results and continue to follow. 6. Hypokalemia. The patient has received 40 mEq of potassium chloride. We will recheck a CMP and magnesium in the morning. 7. Borderline hypotension. The patient has been running slightly low blood pressures, though is maintaining mean arterial pressures that are in the high 60s and 70s. We will continue to monitor this closely. He did receive a total dose of 1500 mL normal saline. He has been placed in ICU for close monitoring. 8. Deep vein thrombosis prophylaxis. He will be provided with sequential compression devices. The patient will be in ICU on telemetry. He will have vital signs per ICU protocol. We will do strict intake and output, incentive spirometry. He will be NPO at this time until evaluated by Gastroenterology. Further orders and recommendations pending hospital course, diagnostic studies, and physician evaluation. Dictated by MALCOLM Flores for Jovani Sharma MD I have performed a face to face diagnostic evaluation. Labs/ Xrays- reviewed. Exam Chest- clear, CV- regular, Abdomen- diffuse tenderness. A/P- Abdominal pain, colon cancer with mets - Admit- NPO, oncology consult. cc: Jovani Sharma MD [facility]
[2019-03-19 05:44] LABS: BASO# 0.07 X1000 (0.0-0.2); BASO% 0.2 % (0.0-0.8); EOS% 1.5 % (0.0-10.0); HEMATOCRIT 26.4 % (42.0-52.0); HEMOGLOBIN 8.8 g/dL (14.0-18.0); IMM GRAN# 0.31 X1000 (0.0-0.04); IMM GRAN% 0.9 % (0.0-0.5); LYMPH# 4.58 X1000 (1.2-3.4); MCH 30.4 PG (27-31); MCHC 33.3 g/dL (33-37); MCV 91.3 FL (81-99); MONO# 3.16 X1000 (0.11-0.59); MONO% 9.7 % (1.7-9.3); MPV 12.4 FL (7.4-10.4); NEUT# 24.08 X1000 (1.4-6.5); NEUT% 73.7 % (42.2-75.2); PLT 509 X1000 (130-400); RBC 2.89 XMIL (4.7-6.1); RDW 17.9 % (11.5-14.5)
[2019-03-19 06:03] LABS: IRON SATURATION 19 %; TIBC 124 ug/dL; TOTAL IRON 24 ug/dL (53-167); UNBOUND IRON 100 ug/dL (112-346)
[2019-03-19 06:05] LABS: EOS 2 % (1-10); LYMPHS 14 % (21-51); MONO 10 % (1-9); SEGS 68 % (42-75)
[2019-03-19 06:08] LABS: AGAP 13; ALB/GLOB RATIO 0.3; ALBUMIN 1.8 g/dL (3.5-5.0); ALKALINE PHOSPHATASE 616 U/L (32-122); BUN 8 mg/dL (8-22); CALCIUM 8.9 mg/dL (8.8-10.2); CHLORIDE 98 mmol/L (98-107); COSMO 259; CREATININE 0.5 mg/dL (0.7-1.2); ESTIMATED GFR > 60; GLUCOSE 70 mg/dL (70-104); GOT 116 U/L (10-34); GPT 43 U/L (10-44); MAGNESIUM 1.5 mg/dL (1.5-2.7); POTASSIUM 3.5 mmol/L (3.5-5.1); SODIUM 131 mmol/L (136-145); TCO2 20 mmol/L (25-35); TOTAL BILIRUBIN 11.04 mg/dL (0.20-1.00); TOTAL PROTEIN 7.6 g/dL (6.3-8.3)
--- NOTE | 2019-03-19 09:48 | PROGRESS NOTE ---
DATE: 03/19/2019 SUBJECTIVE: Mr. Del Cid was admitted this morning. He is a patient of Dr. Sommers. Has no primary care physician. A 58-year-old with history of metastatic colon cancer with liver metastasis followed by Dr. Sommers. He was recently admitted in the hospital in November 2018. Noted to have obstructive jaundice secondary to intrahepatic duct obstruction secondary to metastatic colon cancer. Dr. Honeycutt performed an ERCP and did place a bile duct stent. The patient presented this morning complaining of pain all over, worsening pain, worse in his abdomen and legs. ADMISSION DIAGNOSES: 1. Colon cancer, liver metastasis, worsening hepatic metastasis, hepatic biliary ductal dilatation and associated transaminitis as well. So, Dr. Sommers will follow along, as well as Gastroenterology. 2. Intrahepatic biliary ductal dilatation, transaminitis. The patient did have a recent endoscopic retrograde cholangiopancreatography with biliary stent placement. Given his current computed tomography findings, recent history, we will place consult per Dr. Honeycutt with Gastroenterology. 3. Leukocytosis. History of splenectomy. His white count is quite elevated. He had subjective fever and body aches. So covering him Zosyn 3.375 grams intravenous every 6 hours. 4. Chronic obstructive pulmonary disease. His air exchange seems to be doing well. 5. Anemia. He has decline in his hemoglobin hematocrit, so continue to follow. 6. Hypokalemia. Supplement potassium. 7. Borderline hypotension. Aware. Getting some intravenous fluids. Blood pressures have come up a little bit. 8. Continue deep vein thrombosis prophylaxis. Looking at his orders he is on Zosyn 3.375 grams intravenous every 6 hours. LABORATORY DATA: Reviewed lab this morning. White count is still elevated at 32,700, hematocrit is 26, hemoglobin 8.8, platelet count 509,000. Sodium 131, potassium 3.5, chloride 98, BUN 8, creatinine 0.5, AST 160, ALT 43, alkaline phosphatase 616. cc: Gil Emanuel MD
--- NOTE | 2019-03-19 16:08 | GASTROENTEROLOGY CONSULTATION ---
DATE: 03/19/2019 REASON FOR CONSULTATION: Abdominal pain, history of metastatic colon cancer with liver metastasis and obstruction to the intrahepatic ducts with ERCP done in November 2018. HISTORY OF PRESENT ILLNESS: Patient presents to the hospital with worsening pain, not feeling well. He has not been able to eat much. As noted patient had ERCP in November 2018 with stent placement. He followed up with us in the office in January and at that time we gave him the option of Exchanging the stent in several months depending on how he was doing. Patient had abdominal CT scan on admission that shows worsening hepatic metastasis and intrahepatic biliary ductal dilation. The liver is enlarged. There is a common bile duct stent in place. PAST MEDICAL HISTORY: 1. Colon cancer with liver metastasis. 2. Obstructive jaundice secondary to intrahepatic duct obstruction with biliary stent placed in November 2018. 3. Hypertension. 4. History of alcohol abuse. 5. Tobacco abuse. 6. COPD. 7. Anxiety. PAST SURGICAL HISTORY: Colon surgery secondary to colon cancer, ERCP with biliary stent placement in November 2018. ALLERGIES: No known drug allergies. HOME MEDICATIONS: Albuterol inhaler every 4 to 6 hours as needed, Norvasc 5 mg daily, clonidine 0.1 mg every 12 hours as needed, Lexapro 10 mg daily, OxyContin 10 mg every 12 hours. SOCIAL HISTORY: Positive for tobacco use. Denies current alcohol use. FAMILY HISTORY: Colon cancer in his father. REVIEW OF SYSTEMS: Per history of present illness. PHYSICAL EXAMINATION: Vital Signs: Temperature 98 degrees, pulse 75, respirations 21, blood pressure 87/68. GENERAL: Patient is awake. He is complaining of abdominal pain. He is wanting something to drink and eat. He states pain has improved some with pain medication.HEENT: With scleral jaundice noted. Cardiovascular: Regular rate and rhythm. Respiratory: Lung sounds essentially clear. Abdomen: Tender especially to the right quadrant. Positive bowel sounds. Extremities: No lower extremity edema noted. Neurological: Cranial nerves 2-12 grossly intact. Patient is awake, alert, and oriented. LABORATORY: Hematology: WBC 32.70, hemoglobin 8.8, hematocrit 26.4, MCV 91.3, platelets 509,000. Chemistry: Sodium 131, potassium 3.5, chloride 98, CO2 20, BUN 8, creatinine 0.5, glucose 70, magnesium 1.5, iron 24, TIBC 124, percent saturation 19, ferritin 1205, total bilirubin 11.04, AST 116, ALT 43, alkaline phosphatase 616. ASSESSMENT AND PLAN: 1. Colon cancer with liver metastasis with a worsening hepatic metastasis on CT scan. Patient is following with Dr. Sommers. 2. Intrahepatic biliary ductal dilation and obstruction with biliary stent placed in November 2018. We had discussed the possibility of exchanging this stent depending on patient's progress. 3. Leukocytosis. 4. Chronic obstructive pulmonary disease. 5. Patient has been seen by Dr. Honeycutt. He was given the option of repeating ERCP with exchanging the stent for palliative measures. Patient does not want any further invasive procedures at this time. Dr. Honeycutt has also spoken with Dr. Kita Sommers. I believe social science manager and hospice nurse have been consulted for palliative measures. We will continue to follow along during his hospital course and further plans will be made according to progress. As noted the patient was seen by Dr. Honeycutt. Thank you for this consultation. Dictated by MALCOLM Serrano for Renny Honeycutt MD cc: MALCOLM Otoole MD [facility]
--- NOTE | 2019-03-19 18:08 | HEMO/ONC CONSULTATION ---
DATE: 03/19/2019 REQUESTED BY: Hospitalist service. REASON FOR CONSULTATION: Metastatic colorectal cancer, patient known. HISTORY OF PRESENT ILLNESS: Mr. Del Cid is known to us as we have been treating him for metastatic colorectal cancer now for the last couple years. He was actually in our office on Saturday for evaluation. He has recently, within the last 4 weeks, had clinically noted progression of disease. His performance status has declined significantly and rapidly over the last 4 weeks. On Saturday, when we saw him we expressed to him again that we can no longer do any sort of treatments as he is not well enough to receive any further chemotherapy. He is also not a surgical candidate. We have recommended hospice previously and we also did again on Saturday. The patient's living situation was one that would not qualify him for hospice as he was living on his own. He expressed that he is not interested in living with anyone and will remain living on his own for the time being. The plan was for him just to come to our office and we can help with symptomatic management. We did express to him his last office visit, though that he was starting to decline and we were concerned that things were going to start to become increasingly more difficult here in the very near future. We even adjusted his pain medicines at that last visit. The patient is now in reporting increased pain specifically in his right upper quadrant and legs. He has extensive metastatic liver disease. He is also having weight loss, confusion, lethargy, decreased appetite and symptoms of obstructive jaundice. Currently at bedside is his niece and great niece. We have been attempting to contact the patient's sister several times now so that we can talk to her about the situation and see if he could possibly live at her home. PAST MEDICAL HISTORY: 1. Metastatic colorectal cancer. Most recently he got Vectibix. The patient is heavily pretreated. His disease has progressed and treatment is no longer an option. 2. Anxiety, depression. 3. Chronic pain. 4. Hypertension. PAST SURGICAL HISTORY: Colectomy x2 as well as port placement. SOCIAL HISTORY: Patient smokes about a pack cigarettes per day. He previously drank alcohol daily, but most recently has not. He denies any illicit drug use. He [place] in [place], but actually lives by himself. His brother who he is estranged from and his sister live very close to him. FAMILY HISTORY: Positive for colon cancer in his father. REVIEW OF SYSTEMS: As per the HPI. PHYSICAL EXAMINATION: Vital Signs: Temperature 98 degrees, heart rate 80, respirations 17, blood pressure 76/47, O2 saturation 96% on room air. General: This is a male who is obviously jaundiced. He has significant muscle wasting. He is thin. His niece and great niece are at bedside. Head: Normocephalic, atraumatic. Eyes: Anicteric. Ears, Nose, Throat, Neck, and Mouth: Oral mucosa appears to be normal. Gross auditory acuity is intact. Cardiovascular: S1, S2 heard. Respiratory: Chest is essentially clear with no rhonchi, rales or wheezing noted. Gastrointestinal: Abdomen is soft. He has hepatomegaly noted and right upper quadrant tenderness. Extremities: Some trace edema. Neurologic: Patient is alert. He is not really oriented and does seem to be confused at times. LABS AND STUDIES: White blood cells are 32.7, hemoglobin 8.8, platelet count 509,000. Total bilirubin is 11.04, AST is 116, ALT is 43, alkaline phosphatase at 616. Ferritin is 1205. ASSESSMENT AND PLAN: 1. Advanced metastatic colorectal cancer, heavily pretreated. Patient's performance status has declined. We have discussed with him previously and again today that he is not a candidate for any further chemotherapy treatments. He is also not a surgical candidate in regards to getting any sort of liver resection to help with his extensive metastatic liver disease. We discussed again that we recommend hospice in order to keep him comfortable. Reviewed this also with his niece and grand niece who are present today. The plan at this point is to try to contact the patient's sister who is his next of kin to discuss the situation. Hopefully, he will be able to go live at her home so that way hospice support can come in. 2. Obstructive jaundice, worsening. This is related to hepatic metastasis. Evaluation by Dr. Honeycutt and his team is currently pending. He has previously had an ERCP with biliary stent placement. We will follow up on their evaluation. 3. Leukocytosis. The patient reported on admission that he was having subjective fevers, body aches, and chills. He also has worsening abdominal pain. Continue to cover him with broad- spectrum antibiotics. Follow blood cultures. 4. Hypotension. He continues in the ICU for close monitoring. He is getting IV hydration. Thank you for consulting us on Mr. Del Cid. We will continue to follow along while he is here at the hospital. Of note, we are going to try to contact the patient's sister who is his next of kin to discuss the situation. Shama Griffiths RN is also going to try to contact her. We have placed a palliative care consult. Dictated by JENNY Wakefield for Kita Sommers MD cc: Kita Sommers MD [facility]
[2019-03-20] MEDS: DILAUDID IV PRN ×4 (00:04→13:25)
[2019-03-20] MEDS ORDERED: TYLENOL PO ONE (04:18)
[2019-03-20] MEDS: ZOSYN 3.375 GM in NS 50 ML IV SCH ×2 (04:43→12:00)
--- NOTE | 2019-03-20 12:23 | DISCHARGE SUMMARY ---
ADMISSION DATE: 03/19/2019 DISCHARGE DATE: 03/20/2019 PRIMARY CARE PHYSICIAN: No primary care physician. Followed by Dr. Sommers. HISTORY AND HOSPITAL COURSE: This is a 58-year-old who has a history of metastatic colon cancer with liver metastasis. Followed by [facility], most recently admitted to the hospital in November 2018 and was noted to have obstructive jaundice secondary to intrahepatic duct obstruction secondary to metastatic colon. Dr. Crocker did perform an ERCP and did place a bile duct stent. The patient presented on 03/19/2019 with reports of worsening pain, epigastric pain and pain is worse in his abdomen and his legs. Reports that the tip of the pain is in the right upper abdomen. He does have jaundice, noted to have weakness, poor appetite. His urine looked like [employer] by his description, dark color. Admitted to the hospital. Has colon cancer with metastasis. CT showed worsening hepatic metastasis, hepatic biliary ductal dilatation, associated transaminitis, intrahepatic biliary ductal dilatation with transaminitis. He did have an ERCP, biliary stent placement, and they wanted to pursue possibly further invasive treatment, but he refused and would like to go home with hospice care. So, plan to discharge him home with hospice care. CURRENT MEDICATIONS: 1. He was getting Dilaudid 0.5 mg IV for pain. 2. We had him on an antibiotic, probably will continue and put him on Augmentin 875 mg twice a day for another 7 days and pursue hospice care to go home. cc: Gil Emanuel MD [facility]
[2019-03-20 15:13] VITALS: BP 68/48
== END 2019-03-20 16:00 | disposition hospice, home (50) | DRG 436 ==
LOC: ED 15:49 → SUATTDRO 03-19 00:34 → ICU 03-19 00:34
PROVIDERS: ATTEND Emergency Medicine